=== PATIENT | female | born 2000 | race Caucasian/White ===

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

== ENCOUNTER 2022-04-04 23:30 | Emergency (ER) | payer OTHER, SELFPAY ==
[2022-04-04 23:59] VITALS: BP 113/75; PULSE 72; RESP 15; TEMP 36.8; O2SAT 98; BMI 20.7
== END 2022-04-05 00:26 | disposition left against medical advice (07) ==
PROVIDERS: Emergency Provider Emergency Medicine; PCP Internal Medicine
DX: U07.1 COVID-19 (principal)

== ENCOUNTER 2022-11-19 16:35 | Emergency (ER) | payer OTHER, SELFPAY ==
[2022-11-19 16:48] VITALS: BP 116/63; PULSE 92; RESP 18; TEMP 36.9; O2SAT 100; BMI 19.5
--- NOTE | 2022-11-19 16:49 | ED.DIZZY ---
HPI - Dizziness General Chief Complaint: General Medical Stated Complaint: dizziness,heart racing, ? anxiety Related Data Allergies Allergy/AdvReac Type Severity Reaction Status Date / Time nut - unspecified [NUTS] Allergy Severe SWELLING Verified 12/23/21 19:12 peanut [PEANUT] Allergy Severe FACIAL Verified 12/23/21 19:12 SWELLING, THROAT SWELLING tree nut [TREE NUT] Allergy Severe THROAT Verified 12/23/21 19:12 SWELLING, FACIAL SWELLING PMFSH Past Medical History Medical History (Updated 11/22/22 @ 08:59 by Carmen Gill NP) ADHD Depression High-functioning autism spectrum disorder Social History Social History Advance Directives: No Advance Directives Information Provided: No Physical Exam Vital Signs: Vital Signs: Last Vital Signs Temp 98.5 F 11/19/22 16:48 Pulse 92 11/19/22 16:48 Resp 18 11/19/22 16:48 BP 116/63 11/19/22 16:48 Pulse Ox 100 11/19/22 16:48 O2 Del Method 11/19/22 16:48 BMI result Body Mass Index 19.5 Course Course Course Narrative: THis is a rapid medical exam. deferred additional HPI, ROS, PE to primary provider. 22 yo female with history depression, anxiety, ADHD, autism here with complaints of dizziness, palpitations, falling over x several days, not sleeping. Per mom it is difficult to determine the patient is having a physical issue versus mental health. She is in a reliable historian. Therefore will check labs, EKG, viral testing, UA. Vital signs stable Medical Decision Making Lab Data Result Diagrams: 11/19/22 17:07 11/19/22 17:07 Labs: Lab Results 11/19/22 11/19/22 11/19/22 Range/Units 17:05 17:07 17:07 WBC 9.3 (4.8-10.8) X10*3/uL RBC 5.04 (4.20-5.50) X10*6/uL Hgb 14.7 (12.0-16.0) g/dl Hct 43.1 (37.0-47.0) % MCV 85.5 (80.0-98.0) fL MCH 29.2 (27.0-33.0) pg MCHC 34.1 (31.0-35.0) g/dl RDW 12.7 (11.0-16.0) % Plt Count 391 (160-400) X10*3/uL MPV 10.0 (9.4-12.3) fL Immature Gran % (Auto) 0.3 (0.0-0.4) % Neut % (Auto) 66.8 (45-73) % Lymph % (Auto) 20.9 (20-40) % [place] % (Auto) 7.8 (2-11) % Eos % (Auto) 3.3 (0-4) % Baso % (Auto) 0.9 (0-2) % Lymph # (Auto) 1.9 (1.2-4.9) X10*3/uL [place] # (Auto) 0.7 (0.1-1.2) X10*3/uL Eos # (Auto) 0.3 (0.0-0.4) X10*3/uL Baso # (Auto) 0.1 (0.0-0.2) X10*3/uL Abs Immat Gran (auto) 0.03 (0.00-0.03) X10*3/uL Absolute Neuts (auto) 6.2 (2.0-8.3) x10*3/uL Absolute Nucleated RBC 0.000 (0.0-0.012) X10*3/uL Nucleated RBC % (auto) 0.0 (0.0-0.2) /100WBC Sodium 140 (135-145) mmol/L Potassium 4.0 (3.3-5.1) mmol/L Chloride 106 (96-108) mmol/L Carbon Dioxide 26 (22-29) mmol/L Anion Gap 12 (12-20) BUN 11 (9-16) mg/dL Creatinine 0.74 (0.5-1.4) mg/dL Estim Creat Clear Calc 73.9 Estimated GFR > 60 Random Glucose 97 (60-115) mg/dL Calcium 9.6 (8.4-10.2) mg/dL Magnesium 1.9 (1.6-2.6) mg/dL Total Bilirubin 0.5 (0.0-1.0) mg/dL Direct Bilirubin 0.2 (0.0-0.5) mg/dL AST 17 (5-31) U/L ALT 10 (0-31) U/L Alkaline Phosphatase 69 (39-117) U/L Total Protein 7.0 (6.5-8.0) g/dL Albumin 4.6 (3.5-5.0) g/dL Influenza Type A (PCR) NEGATIVE (Negative) Influenza Type B (PCR) NEGATIVE (Negative) RSV RNA Qual (PCR) NEGATIVE (Negative) SARS-CoV-2 RNA (RT-PCR) NEGATIVE (Negative) Discharge Plan Discharge Clinical Impression: Dizziness Patient Disposition: Elopement Interventions: ED Discharge Assessment Last Done: 11/19/22 19:51 Discharge Date/Time: 11/19/22 19:52
--- NOTE | 2022-11-19 16:51 | ECG_ITS ---
Test Reason : weakness Blood Pressure : / mmHG Vent. Rate : 099 BPM Atrial Rate : 099 BPM P-R Int : 140 ms QRS Dur : 076 ms QT Int : 332 ms P-R-T Axes : 064 061 032 degrees QTc Int : 426 ms Normal sinus rhythm with sinus arrhythmia Normal ECG No previous ECGs available Referred By: Carmen Gill Electronically Signed By:ULYSSES CLEVELAND MD
--- OUTSIDE RECORDS SUMMARY | 2022-11-19 17:09 | XMS_ITS | Continuity of Care Document ---
:2000 Author Organization [facility] Address [address] [place] [id number]- Care Team Providers Name Role Phone Charbel Mendoza MD Primary Care Physician [place] [facility] [place]16[place] - 12/16/[address] [address]- Encounter Diagnosis Abdominal pain in female (Final) - 12/16/20 Abdominal pain in female (Final) - 12/16/20 Discharge Disposition: A-D/C Home Attending Physician: Chago Gimenez MD Admitting Physician: Chago Gimenez MD Referring Physician: Not on Staff, Referring MD Allergies, Adverse Reactions, Alerts Substance Reaction Severity Status Nuts Active Medications Bentyl 10 mg oral capsule 1 capsule = 10 mg, By Mouth, Daily in AM, # 30 capsule, 2 Refills, Maintenance, 01/15/14 15:48:19, 1capsule By Mouth Daily in AM Start Date: 01/15/14 Status: Orderedcyproheptadine 4 mg oral tablet See Instructions, 1 tablet By Mouth in the morning and 3 tablets at bedtime, # 120 tablet, 6 Refills, Maintenance, 07/04/15 17:08:07, 1 tablet By Mouth in the morning and 3 tablets at bedtime Start Date: 07/04/15 Status: OrderedEpiPen 2-Jason 0.3 mg injectable kit = 0.3 mg, Intramuscular, Once, may repeat if necessary, # 1 kit, 0 Refills, Soft Stop, 07/26/18 1:02:07 EDT Start Date: 07/26/18 Status: Orderedibuprofen 100 mg/5 mL oral suspension 15 mL = 300 mg, By Mouth, Every 6 hours, PRN for pain, with food or milk, # 240 mL, 0 Refills, Maintenance, 09/01/17 11:41:59, Suspension Start Date: 09/01/17 Status: OrderedLactulose 0 Refills, Maintenance Start Date: 10/12/12 Status: Orderedlactulose 10 gm/15 ml oral syrup 15 mL = 10 Gm, By Mouth, Daily, # 450 mL, 4 Refills, Maintenance, 09/26/15 17:05:11, 15 mL By Mouth Daily Start Date: 09/26/15 Status: Orderedmelatonin 3 mg oral tablet 1 tablet = 3 mg, By Mouth, Daily at bedtime, PRN for insomnia, # 60 tablet, 0 Refills, Maintenance, Tablet Start Date: 01/12/13 Status: OrderedMultivitamin By Mouth, Daily, 0 Refills, Maintenance Start Date: 10/12/12 Status: OrderedPen [place], 31 G x 5 mm BD Ultra Fine III See Instructions, # 100 each, Refills 11, Tot. Refills 11, Maintenance, use administer growth hormone, 11/28/14 13:26:27, Compound Start Date: 11/28/14 Status: Orderedsumatriptan 25 mg oral tablet 1 tablet = 25 mg, By Mouth, Once, PRN as needed for migraine headache, may repeat dose in 2 hours ifneeded, # 18 tablet, 2 Refills, Soft Stop, 07/04/15 17:08:10, 1 tablet By Mouth Once,PRN:as needed for migraine headache,Instr:may repeat dose in 2 ho... 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 Hx of prematurity(Confirmed) Active Migraine without Aura(Confirmed) Active Short Stature(Confirmed) Active Small for gestational age(Confirmed) Active Vital Signs Most recent to oldest 1 2 3 [Reference Range]: Oxygen Saturation [94-100 %] 100 % 100 % 96 % (12/16/20 11:48 PM) (12/16/20 8:49 PM) (12/16/20 6: 14 PM) Pulse Rate [55-90 bpm] 66 bpm 80 bpm 94 bpm (12/16/20 11:48 PM) (12/16/20 8:49 PM) *H* (12/16/20 6:41 PM ) Blood Pressure [71-110/30-71 115/64 mm Hg 108/62 mm Hg 120 /64 mm Hg mm Hg] *H* (12/16/20 8:49 PM) *H* (12/16/20 11:48 PM) (12/16/20 6:41 PM) Respiratory Rate [16-30 16 br/min 17 br/min 19 br/mi n br/min] (12/16/20 11:48 PM) (12/16/20 8:49 PM) (12/16/20 6: 41 PM) Temperature [96.8-100.4 DegF] 98 DegF 98.5 DegF 98 .9 DegF (12/16/20 11:48 PM) (12/16/20 8:49 PM) (12/16/20 6: 41 PM) Mode of Delivery (Oxygen) Room air Room air Room a ir (12/16/20 11:48 PM) (12/16/20 8:49 PM) (12/16/20 6: 41 PM) Blood pressure sites Arm, left Arm, left Arm, left (12/16/20 11:48 PM) (12/16/20 8:49 PM) (12/16/20 6: 41 PM) Temperature Route Oral Oral Oral (12/16/20 11:48 PM) (12/16/20 8:49 PM) (12/16/20 6: 41 PM) Social History Social History Type Response Smoking Status Never smoker; Tobacco user i n household: Yes; Other: mom outside; entered on: 10/01/15 Sex
--- OUTSIDE RECORDS SUMMARY | 2022-11-19 17:09 | XMS_ITS | Continuity of Care Document ---
:2000 Author Organization [facility] Address [address] [place] [id number]- Care Team Providers Name Role Phone Charbel Mendoza MD Primary Care Physician [place]counter [facility] [place] Date(s): 01/18/21 - 01/19/[address] [address]- Encounter Diagnosis Abdominal pain (Final) - 01/19/21 Discharge Disposition: A-D/C Home Attending Physician: Faith Hare MD Admitting Physician: Faith Hare MD Referring Physician: Not on Staff, Referring MD Allergies, Adverse Reactions, Alerts Substance Reaction Severity Status NKA Active Medications Bentyl 10 mg oral capsule 1 capsule = 10 mg, By Mouth, Daily in AM, # 30 capsule, 2 Refills, Maintenance, 01/15/14 15:48:19, 1capsule By Mouth Daily in AM Start Date: 01/15/14 Status: OrderedConcerta 36 mg oral tablet, extended release 1 tablet = 36 mg, By Mouth, Daily in AM, 0 Refills, Maintenance, 01/17/21 21:58:00 EST, ER Tablet, Partial fill upon patient request if the prescription is for a schedule II opioid drug. Start Date: 01/17/21 Status: Orderedcyproheptadine 4 mg oral tablet See Instructions, 1 tablet By Mouth in the morning and 3 tablets at bedtime, # 120 tablet, 6 Refills, Maintenance, 07/04/15 17:08:07, 1 tablet By Mouth in the morning and 3 tablets at bedtime Start Date: 07/04/15 Status: OrderedEpiPen 2-Jasno 0.3 mg injectable kit = 0.3 mg, Intramuscular, Once, may repeat if necessary, # 1 kit, 0 Refills, Soft Stop, 07/26/18 1:02:07 EDT Start Date: 07/26/18 Status: OrderedhydrOXYzine pamoate 25 mg oral capsule 1 capsule = 25 mg, By Mouth, 3 times a day, PRN for anxiety, # 40 capsule, 0 Refills, Maintenance, 01/17/21 21:59:00 EST, Capsule, Partial fill upon patient request if the prescription is for a schedule II opioid drug. Start Date: 01/17/21 Status: Orderedibuprofen 100 mg/5 mL oral suspension 15 mL = 300 mg, By Mouth, Every 6 hours, PRN for pain, with food or milk, # 240 mL, 0 Refills, Maintenance, 09/01/17 11:41:59, Suspension Start Date: 09/01/17 Status: OrderedKeflex monohydrate 500 mg oral capsule 1 capsule = 500 mg, By Mouth, Every 12 hours, for 7 days, # 14 capsule, 0 Refills, Acute 01/25/21 1:25:00 EST, 01/18/21 1:25:00 EST, Capsule, [facility]/pharmacy #[id number], Partial fill upon patient request if the prescription is for a schedule II opioid drug.,... Start Date: 01/18/21 Stop Date: 01/25/21 Status: OrderedKeflex monohydrate 500 mg oral capsule 1 capsule = 500 mg, By Mouth, Every 12 hours, for 7 days, # 14 capsule, 0 Refills, Acute 01/25/21 1:46:00 EST, 01/18/21 1:46:00 EST, Capsule, [facility]/pharmacy #[id number], Partial fill upon patient request if the prescription is for a schedule II opioid drug.,... Start Date: 01/18/21 Stop Date: 01/25/21 Status: OrderedLactulose 0 Refills, Maintenance Start Date: [...] Refills, Maintenance Start Date: 10/12/12 Status: OrderedPen [place], 31 G x 5 mm BD Ultra [...] to oldest 1 2 3 [Reference Range]: Height 142 cm 142 cm 142 cm (01/19/21 6:48 AM) (01/19/21 5:11 AM) (01/18/21 10: 52 PM) Weight 41.2 kg 41.2 kg 41.2 kg (01/19/21 6:48 AM) (01/19/21 5:11 AM) (01/18/21 10: 52 PM) Oxygen Saturation [94-100 %] 100 % 99 % 99 % (01/19/21 6:48 AM) (01/19/21 5:11 AM) (01/19/21 12: 44 AM) Pulse Rate [55-90 bpm] 60 bpm 75 bpm 58 bpm (01/19/21 6:48 AM) (01/19/21 5:11 AM) (01/19/21 12: 44 AM) Body Mass Index [18.5-24.99] 20.43 20.43 20. 43 (01/19/21 6:48 AM) (01/19/21 5:11 AM) (01/18/21 10: 52 PM) Blood Pressure [71-110/30-71 93/59 mm Hg 105/54 mm Hg 104 /60 mm Hg mm Hg] (01/19/21 6:48 AM) (01/19/21 5:11 AM) (01/19/21 12: 44 AM) Respiratory Rate [16-30 22 br/min 20 br/min 21 br/mi n br/min] (01/19/21 6:48 AM) (01/19/21 5:11 AM) (01/19/21 12: 44 AM) Temperature [96.8-100.4 DegF] 97.7 DegF 97.7 DegF 98 .3 DegF (01/19/21 6:48 AM) (01/19/21 5:11 AM) (01/19/21 12: 44 AM) Mode of Delivery (Oxygen) Room air Room air Room a ir (01/19/21 6:48 AM) (01/19/21 5:11 AM) (01/19/21 12: 44 AM) Blood pressure sites Arm, right Arm, right Arm, right (01/19/21 6:48 AM) (01/19/21 5:11 AM) (01/19/21 12: 44 AM) Temperature Route Oral Oral Oral (01/19/21 6:48 AM) (01/19/21 5:11 AM) (01/19/21 12: 44 AM) Dry Weight 41.2 kg 41.2 kg 41.2 kg (01/19/21 6:48 AM) (01/19/21 5:11 AM) (01/18/21 10: 52 PM) Weight Obtained Via Standing scale (01/18/21 10:52 PM) Dry Weight Obtained Via Standing scale (01/18/21 10:52 PM) Social History Social History Type Response Smoking Status Never smoker; Tobacco user i n household: Yes; Other: mom outside; entered on: 10/01/15 Sex
--- OUTSIDE RECORDS SUMMARY | 2022-11-19 17:09 | XMS_ITS | Continuity of Care Document ---
:2000 Author Organization [facility] Address [address] [place] [id number]- Care Team Providers Name Role Phone Charbel Mendoza MD Primary Care Physician Encounter [facility] [place](s[place] 07/09/21 - 07/09/[address] [address]- Discharge Disposition: A-D/C Home Attending Physician: Jeremias Petit MD Admitting Physician: Jeremias Petit MD Referring Physician: Not on Staff, Referring [...] Refills, Maintenance Start Date: 10/12/12 Status: OrderedPen [place], 31 G x 5 mm BD Ultra [...] Active Vital Signs Most recent to oldest [Reference Range]: 1 2 Height 145.5 cm 145.5 cm (07/09/21 10:39 AM) (07/09/21 10:15 AM) Weight 42.6 kg 42.6 kg (07/09/21 10:39 AM) (07/09/21 10:15 AM) Oxygen Saturation [94-100 %] 100 % (07/09/21 10:15 AM) Pulse Rate [55-90 bpm] 91 bpm *H* (07/09/21 10:15 AM) Body Mass Index [18.5-24.99] 20.12 (07/09/21 10:15 AM) Blood Pressure [71-110/30-71 mm Hg] 119/71 mm Hg *H* (07/09/21 10:15 AM) Respiratory Rate [16-30 br/min] 17 br/min (07/09/21 10:15 AM) Temperature [96.8-100.4 DegF] 98.8 DegF (07/09/21 10:15 AM) Mode of Delivery (Oxygen) Room air (07/09/21 10:15 AM) Blood pressure sites Arm, right (07/09/21 10:15 AM) Temperature Route Temporal (07/09/21 10:15 AM) Dry Weight 42.6 kg 42.6 kg (07/09/21 10:39 AM) (07/09/21 10:15 AM) Weight Obtained Via Standing scale (07/09/21 10:15 AM) Dry Weight Obtained Via Standing scale (07/09/21 10:15 AM) Social History Social History Type Response Smoking Status Never smoker; Tobacco user i n household: Yes; Other: mom outside; entered on: 10/01/15 Sex
[2022-11-19 17:17] LABS: MANUAL DIFF FLAG NO
[2022-11-19 17:18] LABS: Basophils Absolute Auto 0.1 X10*3/uL (0.0-0.2); Basophils Percent Auto 0.9 % (0-2); Eosinophils Absolute Auto 0.3 X10*3/uL (0.0-0.4); Eosinophils Percent Auto 3.3 % (0-4); Hematocrit 43.1 % (37.0-47.0); Hemoglobin 14.7 g/dl (12.0-16.0); Imm Gran Abs Auto 0.03 X10*3/uL (0.00-0.03); Imm Gran Pct Auto 0.3 % (0.0-0.4); Lymphocytes Absolute Auto 1.9 X10*3/uL (1.2-4.9); Lymphocytes Percent Auto 20.9 % (20-40); Mean Corpuscular HGB Conc 34.1 g/dl (31.0-35.0); Mean Corpuscular Hemoglobin 29.2 pg (27.0-33.0); Mean Corpuscular Volume 85.5 fL (80.0-98.0); Monocytes Absolute Auto 0.7 X10*3/uL (0.1-1.2); Monocytes Percent Auto 7.8 % (2-11); Neutrophils Absolute Auto 6.2 x10*3/uL (2.0-8.3); Neutrophils Percent Auto 66.8 % (45-73); Platelet Count 391 X10*3/uL (160-400); Red Blood Count 5.04 X10*6/uL (4.20-5.50); Red Cell Distribution Width 12.7 % (11.0-16.0); White Blood Count 9.3 X10*3/uL (4.8-10.8)
[2022-11-19 17:39] LABS: Alanine Aminotransferase 10 U/L (0-31); Albumin Level 4.6 g/dL (3.5-5.0); Alkaline Phosphatase 69 U/L (39-117); Anion Gap 12 (12-20); Aspartate Amino Transferase 17 U/L (5-31); Bilirubin Direct 0.2 mg/dL (0.0-0.5); Bilirubin Total 0.5 mg/dL (0.0-1.0); Blood Urea Nitrogen 11 mg/dL (9-16); Calcium 9.6 mg/dL (8.4-10.2); Carbon Dioxide 26 mmol/L (22-29); Chloride 106 mmol/L (96-108); Creatinine Clr Calc Pharmacy 73.9; Estimated Glomerular Filt Rate > 60; Glucose Random 97 mg/dL (60-115); Magnesium 1.9 mg/dL (1.6-2.6); Sodium 140 mmol/L (135-145)
[2022-11-19 18:00] LABS: Influenza A PCR NEGATIVE (Negative); Influenza B PCR NEGATIVE (Negative); Resp Syncy Virus RNA Qual PCR NEGATIVE (Negative); SARS COV2 PCR INHOUSE NEGATIVE (Negative)
== END 2022-11-19 19:52 | disposition left against medical advice (07) ==
PROVIDERS: Nurse Practitioner Family; Emergency Provider Emergency Medicine; PCP Pediatrics
DX: R42 Dizziness and giddiness (principal); F41.9 Anxiety disorder, unspecified; F84.0 Autistic disorder; F90.9 Attention-deficit hyperactivity disorder, unspecified type; F32.A Depression, unspecified; Z20.828 Contact with and (suspected) exposure to other viral communicable diseases
CPT/HCPCS: 0241U; 80048; 80076; 83735; 85025; 93005; 99283

== ENCOUNTER 2023-05-27 09:58 | Emergency (ER) | payer OTHER, SELFPAY ==
[2023-05-27 10:01] VITALS: BP 116/72; PULSE 87; O2SAT 96
[2023-05-27 10:08] VITALS: BP 115/74; PULSE 78; RESP 19; TEMP 36.6; O2SAT 98; BMI 19.5
[2023-05-27] MEDS: Acetaminophen 325 MG TABLET 650 MG PO (10:56)
--- NOTE | 2023-05-27 11:05 | PC.NURSE ---
assumed care of pt 1045 pt medicated per JAN for 7/10 right sided head pain. pt given water and crackers per request. speaking in full sentantces, acting appropriately, c- collar had been cleared when t/w entered exam room
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
== END 2023-05-27 12:03 | disposition home or self-care (01) ==
PROVIDERS: Emergency Provider Emergency Medicine Emergency Medical Services; PCP Pediatrics
DX: S16.1XXA Strain of muscle, fascia and tendon at neck level, initial encounter (principal); V43.62XA Car passenger injured in collision with other type car in traffic accident, initial encounter; R51.9 Headache, unspecified; Y93.89 Activity, other specified; Y92.414 Local residential or business street as the place of occurrence of the external cause; Y99.9 Unspecified external cause status
CPT/HCPCS: 99283

== ENCOUNTER 2023-06-22 19:26 | Emergency (ER) | payer OTHER, SELFPAY ==
[2023-06-22 19:45] VITALS: BP 107/64; PULSE 78; RESP 20; TEMP 37; O2SAT 98; BMI 22.2
--- NOTE | 2023-06-22 19:49 | ED_ITS ---
HPI - Psych General Chief Complaint: Anxiety Stated Complaint: Mental health Time Seen by Provider: 06/22/23 22:41 Source: patient, family, RN notes reviewed and old records reviewed Mode of arrival: ambulatory Limitations: no limitations History of Present Illness HPI Narrative: 22-year-old female presents for evaluation of anxiety. Patient has a long history of anxiety disorder. She was last hospitalized a few months ago She saw the care team and was set up with a therapist and psychiatrist. At that time a few months ago she was started on sertraline 25 mg daily She reports that she took it daily for a couple of days and was feeling better but ?then I lost bottle of medications. ? Patient reports that she has anxiety attacks almost daily and they have been worse today Her triggers are random but today was influenced by ?change to my daily activities. ? Patient denies any suicidal ideation but does admit to having suicidal ideation in the past Denies having had any suicidal ideation or plan to harm herself within the last week At the time my evaluation, the patient has been treated with Ativan and triage and reports feeling much better Related Data Home Medications Medication Instructions Recorded Confirmed sertraline 25 mg tablet 25 mg PO DAILY 06/22/23 06/22/23 Previous Rx's Medication Instructions Recorded sertraline 25 mg tablet 25 mg PO DAILY #14 tabs 06/22/23 Allergies Allergy/AdvReac Type Severity Reaction Status Date / Time nut - unspecified [NUTS] Allergy Severe SWELLING Verified 12/23/21 19:12 peanut [PEANUT] Allergy Severe FACIAL Verified 12/23/21 19:12 SWELLING, THROAT SWELLING tree nut [TREE NUT] Allergy Severe THROAT Verified 12/23/21 19:12 SWELLING, FACIAL SWELLING Review of Systems Constitutional: Constitutional: Denies body ache(s), Denies chills and Denies fever(s) Cardiovascular: Cardiovascular: Denies chest pain and Denies dyspnea Respiratory: Respiratory: Denies cough and Denies dyspnea Gastrointestinal: Gastrointestinal: Denies abdominal pain, Denies nausea and Denies vomiting Musculoskeletal: Musculoskeletal: Denies arthralgias, Denies joint swelling and Denies limited range of motion Integumentary/Breasts: Skin/Breast: Denies rash Psychiatric: Psychiatric: Reports anxiety, Reports panic attacks, Denies homicidal ideation and Denies suicidal ideation [facility] Past Medical History Medical History (Updated 06/22/23 @ 23:11 by Librado Curry) ADHD Depression High-functioning autism spectrum disorder Social History Social History Advance Directives: No Advance Directives Information Provided: No Physical Exam Vital Signs: Vital Signs: Last Vital Signs Temp 98.6 F 06/22/23 19:45 Pulse 78 06/22/23 19:45 Resp 20 06/22/23 19:45 BP 107/64 06/22/23 19:45 Pulse Ox 98 06/22/23 19:45 O2 Del Method Room Air 06/22/23 19:45 BMI result Body Mass Index 22.2 Const: General: healthy appearing, comfortable, no acute distress, alert and awake Nutritional Appearance: well nourished Orientation/consciousness: patient oriented x3 HEENT: Head: Yes normocephalic and Yes atraumatic Throat: Yes posterior oropharynx normal Eyes: Eyelids: Yes eyelids normal Conjunctivae: conjunctivae normal Sclerae: sclerae normal Corneas: corneas normal Pupils: Equal, round and reactive pupils present EOM: EOMs intact bilaterally Neck: Neck: Yes full ROM Resp: Effort & Inspection: normal respiratory effort, able to speak in complete sentences, no audible wheezes and not labored Auscultation: clear to auscultation bilaterally Cardio: Rate: regular rate Rhythm: regular rhythm GI: Inspection: No distended Palpation (GI): Soft to palpation, not firm, nontender, no guarding and not rigid Auscultation: normoactive bowel sounds Skin: General skin exam: no rashes or lesions noted and elasticity normal Neuro: General: patient oriented x3 Cranial nerves: Yes Equal, round and reactive pupils present and Yes Bilaterally intact EOM present Cognition (Neuro): normal cognition Course Course Course Narrative: RME - 22 yo female with history of anxiety, depression, ADHD who presents to the ER for evaluation of worsening anxiety for the last 1 week. No relief with hydroxyzine at home. No drugs or ETOH. No SI or HI. Has not seen med prescriber in 2 months. Has a therapist that she has not connected with recently. Plan: CARE team evaluation, not in current crisis that would require inpatient level of care - will hold off of lab workup for now. Medications Administered Discontinued Medications Generic Name Dose Route Start Last Admin Trade Name Freq PRN Reason Stop Dose Admin Lorazepam 1 mg 06/22/23 19:52 06/22/23 20:51 Lorazepam 1 Mg Tablet PO 06/22/23 19:53 1 mg ONCE ONE Administration Medical Decision Making Medical Decision Making MDM Narrative: I had a lengthy discussion with the patient and both of her parents who are bedside. I discussed her anxiety and some coping mechanisms. I asked several times if the patient had any thoughts of harming herself or anybody else and she adamantly refused any suicidal ideation within the last week. The patient is now calmer and cooperative. I asked the patient and the family if they would like to speak to the care team. After some consideration, the ultimately dec lined at this time. I agreed to prescribe the patient 2 weeks worth of the sertraline that she had previously been prescribed but she would need to call her psychiatrist 1st thing in the morning to get back on her outpatient medications. The patient and both her parents all verbally reports that they are comfortable with discharge at this time. Differential Diagnosis Differential Diagnoses: The differential diagnosis associated with the presentation includes Anxiety Panic disorder Depression Bipolar disorder Lab Data 06/22/23 22:49 06/22/23 22:49 Labs: Lab Results 06/22/23 06/22/23 06/22/23 Range/Units 22:49 22:49 22:49 WBC 12.7 H (4.8-10.8) X10*3/uL RBC 4.88 (4.20-5.50) X10*6/uL Hgb 14.6 (12.0-16.0) g/dl Hct 42.2 (37.0-47.0) % MCV 86.5 (80.0-98.0) fL MCH 29.9 (27.0-33.0) pg MCHC 34.6 (31.0-35.0) g/dl RDW 12.4 (11.0-16.0) % Plt Count 406 H (160-400) X10*3/uL MPV 9.3 L (9.4-12.3) fL Immature Gran % (Auto) 0.6 H (0.0-0.4) % Neut % (Auto) 65.7 (45-73) % Lymph % (Auto) 22.5 (20-40) % [place] % (Auto) 8.1 (2-11) % Eos % (Auto) 2.5 (0-4) % Baso % (Auto) 0.6 (0-2) % Lymph # (Auto) 2.9 (1.2-4.9) X10*3/uL [place] # (Auto) 1.0 (0.1-1.2) X10*3/uL Eos # (Auto) 0.3 (0.0-0.4) X10*3/uL Baso # (Auto) 0.1 (0.0-0.2) X10*3/uL Abs Immat Gran (auto) 0.08 H (0.00-0.03) X10*3/uL Absolute Neuts (auto) 8.3 (2.0-8.3) x10*3/uL Absolute Nucleated RBC 0.000 (0.0-0.012) X10*3/uL Nucleated RBC % (auto) 0.0 (0.0-0.2) /100WBC Sodium 141 (135-145) mmol/L Potassium 4.0 (3.3-5.1) mmol/L Chloride 106 (96-108) mmol/L Carbon Dioxide 22 (22-29) mmol/L Anion Gap 17 (12-20) BUN 16 (9-16) mg/dL Creatinine 0.74 (0.5-1.4) mg/dL Estim Creat Clear Calc 76.9 Estimated GFR > 60 Random Glucose 95 (60-115) mg/dL Calcium 9.7 (8.4-10.2) mg/dL Total Bilirubin 0.2 (0.0-1.0) mg/dL AST 16 (5-31) U/L ALT 26 (0-31) U/L Alkaline Phosphatase 83 (39-117) U/L Total Protein 6.9 (6.5-8.0) g/dL Albumin 4.2 (3.5-5.0) g/dL Salicylates < 5.0 L (15-30) mg/dL Acetaminophen < 17 (<30) mcg/mL Ethyl Alcohol < 10 mg/dL Discharge Plan Discharge Clinical Impression: Acute anxiety Patient Disposition: Home, Self-Care Instructions: Anxiety (ED) Additional Instructions: Take your sertraline as prescribed Make sure you call tomorrow morning your psychiatrist to get a scheduled appointment Return for any new or worsening symptoms Call 911 or return to emergency department immediately if you have any thoughts of harming herself or anybody else Prescriptions: New sertraline 25 mg tablet 25 mg PO DAILY Qty: 14 0RF No Action sertraline 25 mg tablet 25 mg PO DAILY Interventions: ED Discharge Assessment Last Done: 06/22/23 23:44
[2023-06-22] MEDS: LORazepam 1 MG TABLET PO (20:51)
--- NOTE | 2023-06-22 20:53 | PC.NURSE ---
Patient has a hx of cutting
[2023-06-22 22:56] LABS: MANUAL DIFF FLAG NO
[2023-06-22 23:00] LABS: Basophils Absolute Auto 0.1 X10*3/uL (0.0-0.2); Basophils Percent Auto 0.6 % (0-2); Eosinophils Absolute Auto 0.3 X10*3/uL (0.0-0.4); Eosinophils Percent Auto 2.5 % (0-4); Hematocrit 42.2 % (37.0-47.0); Hemoglobin 14.6 g/dl (12.0-16.0); Imm Gran Abs Auto 0.08 X10*3/uL (0.00-0.03); Imm Gran Pct Auto 0.6 % (0.0-0.4); Lymphocytes Absolute Auto 2.9 X10*3/uL (1.2-4.9); Lymphocytes Percent Auto 22.5 % (20-40); Mean Corpuscular HGB Conc 34.6 g/dl (31.0-35.0); Mean Corpuscular Hemoglobin 29.9 pg (27.0-33.0); Mean Corpuscular Volume 86.5 fL (80.0-98.0); Mean Platelet Volume 9.3 fL (9.4-12.3); Monocytes Percent Auto 8.1 % (2-11); Neutrophils Absolute Auto 8.3 x10*3/uL (2.0-8.3); Neutrophils Percent Auto 65.7 % (45-73); Platelet Count 406 X10*3/uL (160-400); Red Blood Count 4.88 X10*6/uL (4.20-5.50); Red Cell Distribution Width 12.4 % (11.0-16.0); White Blood Count 12.7 X10*3/uL (4.8-10.8)
--- NOTE | 2023-06-22 23:11 | PC.NURSE ---
TARAS at bedside for eval. Per TARAS, plan for DC home. Per TARAS, pt is not SI, pt misinterpreted questions earlier. Pt provided with CHD packet.
[2023-06-22 23:13] LABS: Alanine Aminotransferase 26 U/L (0-31); Albumin Level 4.2 g/dL (3.5-5.0); Alkaline Phosphatase 83 U/L (39-117); Anion Gap 17 (12-20); Aspartate Amino Transferase 16 U/L (5-31); Bilirubin Total 0.2 mg/dL (0.0-1.0); Blood Urea Nitrogen 16 mg/dL (9-16); Calcium 9.7 mg/dL (8.4-10.2); Carbon Dioxide 22 mmol/L (22-29); Chloride 106 mmol/L (96-108); Creatinine Clr Calc Pharmacy 76.9; Estimated Glomerular Filt Rate > 60; Ethanol < 10 mg/dL; Glucose Random 95 mg/dL (60-115); Sodium 141 mmol/L (135-145); Total Protein 6.9 g/dL (6.5-8.0)
[2023-06-22 23:16] LABS: Acetaminophen LAB < 17 mcg/mL (<30); Salicylate < 5.0 mg/dL (15-30)
== END 2023-06-22 23:44 | disposition home or self-care (01) ==
PROVIDERS: Emergency Provider Internal Medicine; PCP Pediatrics
DX: F41.9 Anxiety disorder, unspecified (principal); Z79.899 Other long term (current) drug therapy
CPT/HCPCS: 36415; 80053; 80143; 80179; 80307; 85025; 99283; 99284

== ENCOUNTER 2023-08-02 01:14 | Emergency (ER) | payer OTHER, SELFPAY ==
[2023-08-02 01:18] VITALS: BP 122/81; PULSE 81; RESP 18; TEMP 36.8; O2SAT 99; BMI 21.2
[2023-08-02 03:30] VITALS: BP 112/70; PULSE 72; RESP 16; TEMP 36.7; O2SAT 98
[2023-08-02] MEDS: LORazepam 1 MG TABLET PO (04:53)
--- NOTE | 2023-08-02 05:11 | ED.ANXIETY ---
HPI - Anxiety General Chief Complaint: Anxiety Stated Complaint: mental health eval Time Seen by Provider: 08/02/23 03:56 Source: patient Mode of arrival: ambulatory Limitations: no limitations History of Present Illness HPI narrative: Patient with history of anxiety takes Atarax, this time is not working for last few days unable to sleep denies any significant depression or SI Related Data Home Medications Medication Instructions Recorded Confirmed sertraline 25 mg tablet 25 mg PO DAILY 06/22/23 06/22/23 Previous Rx's Medication Instructions Recorded sertraline 25 mg tablet 25 mg PO DAILY #14 tabs 06/22/23 lorazepam 0.5 mg tablet (Ativan) 0.5 mg PO BEDTIME PRN 08/02/23 anxiety/sleep #10 tabs Allergies Allergy/AdvReac Type Severity Reaction Status Date / Time nut - unspecified [NUTS] Allergy Severe SWELLING Verified 12/23/21 19:12 peanut [PEANUT] Allergy Severe FACIAL Verified 12/23/21 19:12 SWELLING, THROAT SWELLING tree nut [TREE NUT] Allergy Severe THROAT Verified 12/23/21 19:12 SWELLING, FACIAL SWELLING Review of Systems Review of Systems: Yes all other systems are reviewed and are negative [facility] Past Medical History Medical History High-functioning autism spectrum disorder Depression ADHD Social History Social History Advance Directives: No Advance Directives Information Provided: Yes Physical Exam Vital Signs: Vital Signs: Last Vital Signs Temp 98.1 F 08/02/23 03:30 Pulse 72 08/02/23 03:30 Resp 16 08/02/23 03:30 BP 112/70 08/02/23 03:30 Pulse Ox 98 08/02/23 03:30 O2 Del Method Room Air 08/02/23 03:30 BMI result Body Mass Index 21.2 Appearance: Alert. Oriented X3. No acute distress. Anxious Neck: Normal inspection. Neck supple. CVS: Normal heart rate and rhythm. Pulses normal. Respiratory: No respiratory distress. Equal air entry bilateral, no wheezing/rales/rhonchi Abdomen: Soft and nontender. Bowel sounds are present, no mass palpable, Skin: Skin warm and dry. Normal skin color. Normal skin turgor. Extremities: No lower extremity edema. No calf tenderness Neuro: Oriented X 3. Medications Administered Discontinued Medications Generic Name Dose Route Start Last Admin Trade Name Freq PRN Reason Stop Dose Admin Lorazepam 1 mg 08/02/23 04:04 08/02/23 04:53 Lorazepam 1 Mg Tablet PO 08/02/23 04:05 1 mg ONCE ONE Administration Medical Decision Making Medical Decision Making [facility] Narrative: Patient anxiety responded to Ativan discharge patient home use Ativan as needed for severe anxiety Discharge Plan Discharge Clinical Impression: Acute anxiety, Panic disorder Patient Disposition: Home, Self-Care Instructions: Panic Attack (ED) Additional Instructions: Continue your medications take Ativan for severe anxiety/panic attack and follow with your psychiatrist Prescriptions: New lorazepam [Ativan] 0.5 mg tablet 0.5 mg PO BEDTIME PRN (Reason: anxiety/sleep) Qty: 10 0RF No Action sertraline 25 mg tablet 25 mg PO DAILY sertraline 25 mg tablet 25 mg PO DAILY Qty: 14 0RF Interventions: ED Discharge Assessment Last Done: 08/02/23 05:55 Discharge Date/Time: 08/02/23 05:47
== END 2023-08-02 05:47 | disposition home or self-care (01) ==
PROVIDERS: Emergency Provider Internal Medicine
DX: F41.1 Generalized anxiety disorder (principal); F43.0 Acute stress reaction; F41.0 Panic disorder [episodic paroxysmal anxiety]
CPT/HCPCS: 99283

== ENCOUNTER 2023-08-03 18:02 | Inpatient (IN) | payer OTHER, SELFPAY ==
--- NOTE | 2023-08-03 18:25 | ED.GENADULT ---
HPI - General Adult General Chief complaint: Psychiatric Symptoms Stated complaint: Anxiety/ crisis Time Seen by Provider: 08/03/23 18:46 Source: patient Mode of arrival: ambulatory Limitations: no limitations History of Present Illness HPI narrative: 22-year-old female presents to the ED for anxiety exacerbation due to intrusive thoughts and having suicidal ideation but has no plan. Patient denies any fever or chills. Denies any drug use or alcohol abuse. Related Data Home Medications Medication Instructions Recorded Confirmed lorazepam 0.5 mg tablet 0.5 mg PO DAILY PRN Anxiety 08/03/23 08/03/23 sertraline 25 mg tablet 25 mg PO DAILY 08/03/23 08/03/23 Allergies Allergy/AdvReac Type Severity Reaction Status Date / Time nut - unspecified [NUTS] Allergy Severe SWELLING Verified 12/23/21 19:12 peanut [PEANUT] Allergy Severe FACIAL Verified 12/23/21 19:12 SWELLING, THROAT SWELLING tree nut [TREE NUT] Allergy Severe THROAT Verified 12/23/21 19:12 SWELLING, FACIAL SWELLING Review of Systems Review of Systems: Anxiety, suicidal ideation Yes all other systems are reviewed and are negative [facility] Past Medical History Medical History High-functioning autism spectrum disorder Depression ADHD Social History Social History Advance Directives: No Advance Directives Information Provided: No Healthcare Proxy: No Guardian: No Physical Exam ED Vital Signs: Vital Signs - 24 hr 08/03/23 18:26 Temperature 98.5 F Pulse Rate 85 Respiratory Rate 18 Blood Pressure 111/66 Pulse Oximetry 100 Oxygen Delivery Method Room Air BMI result Body Mass Index 21.0 Const General: cooperative, healthy appearing, comfortable, no acute distress, well developed, alert, awake and Physically active Orientation/consciousness: oriented to person, oriented to place, oriented to time and patient oriented x3 HENMT Head: Yes normal to inspection, Yes No palpable skull fracture present, Yes normocephalic, Yes atraumatic and No abrasion Eyes General: appearance normal, both eyes and all related structures Neck Neck: Yes normal visual inspection, Yes full ROM, Yes no lymphadenopathy, Yes no meningeal signs, Yes trachea midline, Yes supple, No anterior neck swelling and No tender Chest Chest palpation & inspection: normal inspection of the chest and normal palpation of entire chest wall Resp Effort & Inspection: normal respiratory effort and able to speak in complete sentences Auscultation: clear to auscultation bilaterally Cardio Jugular venous distension: no JVD Heart sounds: S1 normal heart sound present and S2 normal heart sound present GI Inspection: Yes normal to inspection and No abdominal wall ecchymosis Palpation (GI): Soft to palpation, not firm, nontender, no guarding and not rigid General: No CVA tenderness and Yes no CVA tenderness Back/Spine/Pelvis Back: no CVA tenderness, No CVA tenderness and No back tenderness Skin General skin exam: no rashes or lesions noted, elasticity normal and turgor normal Neuro General: oriented to person, oriented to place, oriented to time, patient oriented x3, gait normal, tone normal, moves all extremities, Normal light touch and pain sensation, no meningeal signs, no focal motor deficits, CN's II-XI intact bilaterally and normal sensation to monofilament Extrem General: Yes normal to inspection and Yes full ROM Psych Appearance: grossly normal, well kempt and not disheveled Course Course Course Narrative: RME: 22-year-old female with past medical history of anxiety presenting to the ED complaining of increasing anxiety/panic & intrusive thoughts w/+SI x5-6 weeks. Patient states I could jump off a roof or something, but that's not my plan Spoke with therapist today on phone who's suspicious patient is Bipolar however cannot be started on any meds x months and recommended she come to the ED Labs, Tox screen, UA, CARE team consult ordered Full HPI, ROS and PE to be performed by primary ED provider. Reevaluation(s) Reevaluation #1: Physician observation started at 0339. Patient placed in physician observation because the patient needed more time for CARE team to assess the need for psych admission. VS stable, no acute events overnight. Physician observation continued. VS stable, no acute events overnight S12 bed search at this time workup other than slight bump in WBC count, UTI seems contaminated. 440am. Medications Administered Discontinued Medications Generic Name Dose Route Start Last Admin Trade Name Freq PRN Reason Stop Dose Admin Melatonin 9 mg 08/03/23 20:54 08/03/23 21:15 Melatonin 3 Mg Tablet PO 08/03/23 20:55 9 mg ONCE ONE Administration Medical Decision Making Medical Decision Making MDM Narrative: 22-year-old female presents to ED for anxiety and suicidal ideation without any plan. Labs ordered patient would like to be evaluated by care team. Patient not homicidal. Patient presently denies any physical complaints. 2:54am: Patient seen by care team consulted Frank who states patient will be a bed search for psych admission. Differential Diagnosis Differential Diagnoses: The differential diagnosis associated with the presentation includes (depression, Suicidal, homicidal, psychosis, bipolar) Admission/Observation Consideration of admission/observation: Escalation of care including admission/observation considered Lab Data [facility] Lab Attestation statement: I reviewed the patient's lab results. 08/03/23 18:54 08/03/23 18:54 Labs: Lab Results 08/03/23 08/03/23 Range/Units 18:54 21:36 WBC 15.6 H (4.8-10.8) X10*3/uL RBC 5.07 (4.20-5.50) X10*6/uL Hgb 14.9 (12.0-16.0) g/dl Hct 42.3 (37.0-47.0) % MCV 83.4 (80.0-98.0) fL MCH 29.4 (27.0-33.0) pg MCHC 35.2 H (31.0-35.0) g/dl RDW 12.3 (11.0-16.0) % Plt Count 391 (160-400) X10*3/uL MPV 9.6 (9.4-12.3) fL Immature Gran % (Auto) 0.5 H (0.0-0.4) % Neut % (Auto) 85.7 H (45-73) % Lymph % (Auto) 7.3 L (20-40) % [place] % (Auto) 5.3 (2-11) % Eos % (Auto) 0.8 (0-4) % Baso % (Auto) 0.4 (0-2) % Lymph # (Auto) 1.1 L (1.2-4.9) X10*3/uL [place] # (Auto) 0.8 (0.1-1.2) X10*3/uL Eos # (Auto) 0.1 (0.0-0.4) X10*3/uL Baso # (Auto) 0.1 (0.0-0.2) X10*3/uL Abs Immat Gran (auto) 0.08 H (0.00-0.03) X10*3/uL Absolute Neuts (auto) 13.4 H (2.0-8.3) x10*3/uL Absolute Nucleated RBC 0.000 (0.0-0.012) X10*3/uL Nucleated RBC % (auto) 0.0 (0.0-0.2) /100WBC Sodium 141 (135-145) mmol/L Potassium 3.9 (3.3-5.1) mmol/L Chloride 107 (96-108) mmol/L Carbon Dioxide 24 (22-29) mmol/L Anion Gap 14 (12-20) BUN 11 (9-16) mg/dL Creatinine 0.68 (0.5-1.4) mg/dL Estim Creat Clear Calc 80.4 Estimated GFR > 60 Random Glucose 97 (60-115) mg/dL Calcium 9.4 (8.4-10.2) mg/dL Total Bilirubin 0.3 (0.0-1.0) mg/dL AST 15 (5-31) U/L ALT 12 (0-31) U/L Alkaline Phosphatase 77 (39-117) U/L Total Protein 7.3 (6.5-8.0) g/dL Albumin 4.5 (3.5-5.0) g/dL Urine Color Yellow Urine Appearance Clear Urine pH 6.5 (5.0-9.0) Ur Specific [place] 1.020 (1.005-1.025) Urine Protein Negative (Neg-Trace) mg/dL Urine Glucose (UA) Negative (Negative) mg/dL Urine Ketones Negative (Negative) mg/dL Urine Blood Negative (Negative) Urine Nitrite Negative (Negative) Ur Leukocyte Esterase Small (1+) H (Negative) Urine RBC 0-2 (0-2) /HPF Urine WBC 11-20 H (0-5) /HPF Ur Squamous Epith Cells 11-20 (0-2) /HPF Urine Bacteria 1+ (None Seen) Hyaline Casts 0-2 (0-2) /LPF Urine Test NEGATIVE (NEGATIVE) Salicylates < 5.0 L (15-30) mg/dL Urine Opiates Screen Not Detected (Not Detect) Urine Fentanyl Screen Not Detected (Not Detect) Acetaminophen < 17 (<30) mcg/mL Ur Barbiturates Screen Not Detected (Not Detect) Ur Phencyclidine Scrn Not Detected (Not Detect) Ur Amphetamines Screen Not Detected (Not Detect) U Benzodiazepines Scrn Not Detected (Not Detect) Urine Cocaine Screen Not Detected (Not Detect) U Marijuana (THC) Screen Not Detected (Not Detect) Ethyl Alcohol < 10 mg/dL COVID-19 ([facility]ANGEL) Negative (Negative) COVID-19 Clin Com See Note Independent Historian Clinical information obtained from an independent historian. History obtained from or confirmed by: EMS External Record Review External record reviewed: Other (Prior ED visit) Discharge Plan Discharge Clinical Impression: Bipolar disorder Patient Disposition: Admitted As Inpatient Interventions: Admission Worksheet (ED) Last Done: 08/04/23 15:09 Discharge Date/Time: 08/04/23 15:09
[2023-08-03 18:26] VITALS: BP 111/66; PULSE 85; RESP 18; TEMP 36.9; O2SAT 100; BMI 21.0
[2023-08-03 19:05] LABS: MANUAL DIFF FLAG NO
[2023-08-03 19:07] LABS: Basophils Absolute Auto 0.1 X10*3/uL (0.0-0.2); Basophils Percent Auto 0.4 % (0-2); Eosinophils Absolute Auto 0.1 X10*3/uL (0.0-0.4); Eosinophils Percent Auto 0.8 % (0-4); Hematocrit 42.3 % (37.0-47.0); Hemoglobin 14.9 g/dl (12.0-16.0); Imm Gran Abs Auto 0.08 X10*3/uL (0.00-0.03); Imm Gran Pct Auto 0.5 % (0.0-0.4); Lymphocytes Absolute Auto 1.1 X10*3/uL (1.2-4.9); Lymphocytes Percent Auto 7.3 % (20-40); Mean Corpuscular HGB Conc 35.2 g/dl (31.0-35.0); Mean Corpuscular Hemoglobin 29.4 pg (27.0-33.0); Mean Corpuscular Volume 83.4 fL (80.0-98.0); Mean Platelet Volume 9.6 fL (9.4-12.3); Monocytes Absolute Auto 0.8 X10*3/uL (0.1-1.2); Monocytes Percent Auto 5.3 % (2-11); Neutrophils Absolute Auto 13.4 x10*3/uL (2.0-8.3); Neutrophils Percent Auto 85.7 % (45-73); Platelet Count 391 X10*3/uL (160-400); Red Blood Count 5.07 X10*6/uL (4.20-5.50); Red Cell Distribution Width 12.3 % (11.0-16.0); White Blood Count 15.6 X10*3/uL (4.8-10.8)
[2023-08-03 19:22] LABS: COVID-19 Test Negative (Negative); IDNOW Serial# BCCEAD1C
[2023-08-03 19:33] LABS: Acetaminophen LAB < 17 mcg/mL (<30); Alanine Aminotransferase 12 U/L (0-31); Albumin Level 4.5 g/dL (3.5-5.0); Alkaline Phosphatase 77 U/L (39-117); Anion Gap 14 (12-20); Aspartate Amino Transferase 15 U/L (5-31); Bilirubin Total 0.3 mg/dL (0.0-1.0); Blood Urea Nitrogen 11 mg/dL (9-16); Calcium 9.4 mg/dL (8.4-10.2); Carbon Dioxide 24 mmol/L (22-29); Chloride 107 mmol/L (96-108); Creatinine Clr Calc Pharmacy 80.4; Estimated Glomerular Filt Rate > 60; Ethanol < 10 mg/dL; Glucose Random 97 mg/dL (60-115); Potassium 3.9 mmol/L (3.3-5.1); Salicylate < 5.0 mg/dL (15-30); Sodium 141 mmol/L (135-145); Total Protein 7.3 g/dL (6.5-8.0)
[2023-08-03] MEDS: Melatonin 3 MG TABLET 9 MG PO (21:15)
[2023-08-03 21:50] LABS: Appearance Urine Clear; Color Urine Yellow; Glucose Urine UA Negative (Negative); Leukocyte Esterase Urine Small (1+) (Negative); Nitrite Urine Negative (Negative); PH 6.5 (5.0-9.0); UMIC TRIGGER UA YES; Urine Blood Negative (Negative); Urine Ketones Negative (Negative); Urine Protein Negative (Neg-Trace)
[2023-08-03 21:51] LABS: UPreg QC Valid YES; Urine Pregnancy NEGATIVE (NEGATIVE)
[2023-08-03 21:58] LABS: Amphetamine Screen Urine Not Detected (Not Detect); Barbiturates, Urine Not Detected (Not Detect); Benzodiazepines Screen Urine Not Detected (Not Detect); Cannabinoid Screen Urine Not Detected (Not Detect); Cocaine Screen Urine Not Detected (Not Detect); Fentanyl, urine Not Detected (Not Detect); Opiate Screen Urine Not Detected (Not Detect); Phencyclidine Screen Urine Not Detected (Not Detect)
[2023-08-03 22:22] LABS: Bacteria Urine 1+ (None Seen); Hyaline Casts Urine 0-2 /LPF (0-2); RBC Urine 0-2 /HPF (0-2)
--- NOTE | 2023-08-04 06:08 | PC.NURSE ---
Patient slept through the night, no distress observed/reported, med rec completed/pending provider's approval, Melatonin 9 mg administered with + effect, patient was assessed by care team, labs completed/resulted, patient is on 15 minutes for safety check, disposition per care team is section 12 inpatient bed search, behavior non concerning, VSS, will continue to monitor
[2023-08-04 16:00] VITALS: BP 112/66; PULSE 79; RESP 20; TEMP 36.6; O2SAT 96
[2023-08-04 16:47] VITALS: BMI 21.2
--- NOTE | 2023-08-04 16:49 | PC.ADMIT ---
Nursing admission note: 22 year old female DX: Unspecified Bipolar disorder, Panic disorder. Referred for treatment by CARE team. Patient presented to [facility] ER due to increased anxiety, panic attacks, suicidal ideation and intrusive thoughts. Patient reports her therapist directed her to come to ER as she may be experiencing a manic episode. Patient easily engaged. Reports feeling very anxious scared , affect congruent. States she has not been hospitalized for psychiatric problems previously. Presents with intermittent eye contact, stating it is uncomfortable for her. Reports intermittent SI, chronic, on and off for years . Reports history of cutting in middle school, states she has found other ways of coping, has not cut for years. Reports intrusive thoughts, random, to hurt others . Denies at this time. Reports her thoughts tell her to kill herself, not voices, it's not outside of my head, I tell my mind it is being a douche . Thoughts clear, linear and organized. Denies racing thought at this time. No overt psychosis or expressed delusions. Reports she gets angry when nothing is going on , high emotions that drop down . Reports mother is [employer] and brother is Autistic. Denies appetite disturbances, states she eats when I am starving . Finds it hard to fall asleep. Good attn to ADL. Skin check completed with RN ROSY. Reports massive sensory issues , fabrics irritate me, showers are irritating on my skin . Patient denies acute medical issues. Allergy to Peanut, tree nut. Patient non smoker, TOX screen negative. COVID negative. UCG negative. Reports she has received flu shot for this season. Patient oriented to unit, placed on unit safety checks. See nursing assessment, crisis evaluation for complete details.
[2023-08-04 19:45] VITALS: BP 105/63; PULSE 86; RESP 18; TEMP 36.8; O2SAT 100
[2023-08-04] MEDS: LORazepam 0.5 MG TABLET PO (22:06)
[2023-08-04] MEDS: traZODone HCL 50 MG TABLET PO (22:06)
[2023-08-05 07:00] VITALS: BMI 21.5
[2023-08-05 09:00] VITALS: BP 96/54; PULSE 70; RESP 18; TEMP 36.6; O2SAT 95
[2023-08-05 09:01] LABS: Estimated Average Glucose 97 mg/dL
[2023-08-05 10:03] LABS: Cholesterol 165 mg/dL (<200); HDL Cholesterol 54 mg/dL (>40); LDL Cholesterol Calculated 97 mg/dL (<100); Triglycerides 70 mg/dL (<150)
[2023-08-05 10:07] LABS: Free T4 (Free Thyroxine) 0.82 ng/dL (0.71-1.85); Thyroid Stimulating Hormone 6.18 uIU/mL (0.32-4.0)
[2023-08-05 10:26] LABS: Folate 5.9 ng/mL (> or = 4.0); Vitamin B12 370 pg/mL (200-900)
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
[2023-08-05] MEDS: carBAMazepine ER 100 MG TAB.ER.12H PO ×2 (12:35→22:06)
[2023-08-05 21:35] VITALS: BP 114/56; PULSE 75; RESP 18; TEMP 36.5; O2SAT 94
[2023-08-05] MEDS: LORazepam 0.5 MG TABLET PO (22:06)
[2023-08-05] MEDS: traZODone HCL 50 MG TABLET PO (22:06)
[2023-08-06 08:40] VITALS: BP 119/55; PULSE 63; RESP 18; TEMP 36.6; O2SAT 98
--- NOTE | 2023-08-06 12:11 | P.PNPSI_ITS ---
Subjective Subjective Date of Service: 08/06/23 Reason For Visit: SI Subjective Notes: Conditional Voluntary Interim History: Pt reports feeling great after one dose of carbamazepine. nursing staff was concern about possible allergic rx as pt reported hr after taking medication that she had itchy throat. No s/s of anaphylactic rx including compromise airway facil swelling or throat closing. It resolved on its pwn without antihistamine. She does report peer at home had strep throat- ordered strep throat test which was negative. Pt asking to leave soon as she feels better. Encouraged to stay to coordinate aftercare and still make sure she does not have rx to carbamazepine. She received dose today without any s/s of allergic rx. Review of Systems Review of Systems Anxiety, suicidal ideation Yes all other systems are reviewed and are negative Mental Status Exam Mental Status Exam Narrative: adequately dressed (griffindor sweater) and groomed, diminutive, short hair. cooperative, no PMA/PMR. speech incr rate, nml amount, tone, latency. thoughts linear and logical. affect full range, normo-intense, non-labile. mood currently, nothing, but generally these days periods of severe anxiety alternating with feeling fine. +SI, MRE a couple of days ago. +HI, MRE 1-2 weeks ago. denies AVH. Diagnostics Vital Signs (24Hr): Vital Signs - 24 hr 08/05/23 21:35 08/06/23 08:40 Temperature 97.7 F 97.8 F Pulse Rate 75 63 Respiratory Rate 18 18 Blood Pressure 114/56 L 119/55 L Pulse Oximetry 94 98 Oxygen Delivery Method Room Air Room Air BMI result Body Mass Index 21.5 Labs 08/03/23 18:54 08/03/23 18:54 Labs: Laboratory Results - last 48 hr 08/05/23 08:24 Estimat Average Glucose 97 Hemoglobin A1c % 5.0 Triglycerides 70 Cholesterol 165 LDL Cholesterol, Calc 97 HDL Cholesterol 54 Vitamin B12 370 Folate 5.9 TSH 6.18 H Free T4 0.82 Medications Medications Current Medications Acetaminophen (Acetaminophen 325 Mg Tablet) 650 mg PO Q6H PRN PRN Reason: Headache/Pain Mild Scale (1-3) Al Hydroxide/Mg Hydroxide (Magnesium Hydrox/Alum Hydrox 30 Ml Oral.Susp) 30 ml PO Q6H PRN PRN Reason: Heartburn/Nausea Benzocaine (Throat Lozenge, Medicated Lozenge) 1 lozenge MUCOUS MEM Q2H PRN PRN Reason: Sore Throat Carbamazepine (Carbamazepine Er 100 Mg Tab.Er.12h) 100 mg PO BID POLA Last Admin: 08/06/23 11:16 Dose: Not Given Diphenhydramine HCl (Diphenhydramine Hcl 25 Mg Capsule) 50 mg PO Q6H PRN PRN Reason: allergy Hydroxyzine HCl (Hydroxyzine Hcl 25 Mg Tablet) 25 mg PO Q6H PRN PRN Reason: Anxiety Lorazepam (Lorazepam 0.5 Mg Tablet) 0.5 mg PO DAILY PRN PRN Reason: Anxiety Last Admin: 08/05/23 22:06 Dose: 0.5 mg Magnesium Hydroxide (Milk Of Magnesia 30 Ml Oral.Susp) 30 ml PO DAILY PRN PRN Reason: Constipation Multi-Ingred Medicated Throat [place] (Throat [place], Medicated 177 Ml Bottle) 1 spray MUCOUS MEM Q2H PRN PRN Reason: Sore Throat Nicotine Polacrilex (Nicotine Polacrilex 2 Mg Gum) 2 mg BUCCAL Q2H PRN PRN Reason: Nicotine Cravings Trazodone HCl (Trazodone Hcl 50 Mg Tablet) 50 mg PO BEDTIME PRN PRN Reason: Insomnia Allergies Allergies Allergy/AdvReac Type Severity Reaction Status Date / Time nut - unspecified [NUTS] Allergy Severe SWELLING Verified 12/23/21 19:12 peanut [PEANUT] Allergy Severe FACIAL Verified 12/23/21 19:12 SWELLING, THROAT SWELLING tree nut [TREE NUT] Allergy Severe THROAT Verified 12/23/21 19:12 SWELLING, FACIAL SWELLING Assessment & Plan Assessment & Plan (1) Bipolar disorder: Status: Acute Code(s): F31.9 - Bipolar disorder, unspecified Plan start tegretol 100 BID for presumed bipolar disorder 08/07 continue tx. strep test- neg. Reason for continued inpatient stay Substantial Risk for: inability to function Time Spent With Patient Time: Total time managing care of this patient today ____ minutes.
[2023-08-06] MEDS: carBAMazepine ER 100 MG TAB.ER.12H PO ×2 (12:36→22:35)
[2023-08-06] MEDS: Throat Lozenge, Medicated LOZENGE 1 LOZENGE MUCOUS MEM (16:56)
[2023-08-06] MEDS: Throat Spray, Medicated 177 ML BOTTLE 1 SPRAY MUCOUS MEM (19:59)
[2023-08-06 22:19] VITALS: BP 130/80; PULSE 106; RESP 19; TEMP 36.8; O2SAT 94
[2023-08-06] MEDS: traZODone HCL 50 MG TABLET PO (22:35)
[2023-08-06] MEDS: Acetaminophen 325 MG TABLET 650 MG PO (22:35)
[2023-08-06 23:40] LABS: IDNOW Serial# 08D9AD1C; Strep A Nucleic Acid Negative (Negative)
[2023-08-07] MEDS: diphenhydrAMINE HCL 25 MG CAPSULE 50 MG PO (00:03)
--- NOTE | 2023-08-07 14:15 | P.PNPSI_ITS ---
Subjective Subjective Date of Service: 08/07/23 Reason For Visit: SI Subjective Notes: Conditional Voluntary Interim History: Pt has had complaint of s/e of tegretol with itchiness in mouth in pm after tegretol dose- has taken 3 doses but this am has been held- it has only been in pm dose- but to be on safe side dcing today - Pt reports they were being treated for mood changes- We discussed trial of abilify as alternative to tegretol- no hx of seizures Pt agrees we discussed risk/benefits including weight gain, diabetes and TD Grandmother was present during discussion Medication Compliance: Yes Side effects from medications: Yes (tegretol caused itchy mucous membranes in mouth) Attending Groups: Yes Review of Systems Acute medical concerns: Yes just the itchy mouth Review of Systems: otherwise unchanged Mental Status Exam Mental Status Exam Narrative: young appearing 22 yo - dressed in pjs and a baseball jacket, glasses Patient Appearance: Appropriate and Unkempt Patient Orientation: Person, Place, Time and Situation Level of Consciousness: Awake Patient Behavior: Appropriate and Restless Mood Description: Calm Affect Description: Calm and Appropriate Patient Cognition Impaired: No Ability to Follow Directions: Good Speech Pattern: Clear Hallucinations: None Delusions: Not Present Thought Process: Intact Thought Content: positive for Intact Depressive Symptoms: Diff. Making Decisions and Increased Irritability Judgement: Fair Diagnostics Vital Signs (24Hr): Vital Signs - 24 hr 08/06/23 22:19 Temperature 98.3 F Pulse Rate 106 H Respiratory Rate 19 Blood Pressure 130/80 Pulse Oximetry 94 Oxygen Delivery Method Room Air BMI result Body Mass Index 21.5 Labs 08/03/23 18:54 08/03/23 18:54 Labs: Laboratory Results - last 48 hr 08/06/23 08/06/23 14:30 22:55 Vag/Rect Grp B Strep PCR Cancelled S. pyogenes GrpA ZABRINA Negative Medications Medications Current Medications Acetaminophen (Acetaminophen 325 Mg Tablet) 650 mg PO Q6H PRN PRN Reason: Headache/Pain Mild Scale (1-3) Last Admin: 08/06/23 22:35 Dose: 650 mg Al Hydroxide/Mg Hydroxide (Magnesium Hydrox/Alum Hydrox 30 Ml Oral.Susp) 30 ml PO Q6H PRN PRN Reason: Heartburn/Nausea Benzocaine (Throat Lozenge, Medicated Lozenge) 1 lozenge MUCOUS MEM Q2H PRN PRN Reason: Sore Throat Last Admin: 08/06/23 16:56 Dose: 1 lozenge Carbamazepine (Carbamazepine Er 100 Mg Tab.Er.12h) 100 mg PO BID POLA Last Admin: 08/07/23 12:23 Dose: Not Given Diphenhydramine HCl (Diphenhydramine Hcl 25 Mg Capsule) 50 mg PO Q6H PRN PRN Reason: allergy Last Admin: 08/07/23 00:03 Dose: 50 mg Hydroxyzine HCl (Hydroxyzine Hcl 25 Mg Tablet) 25 mg PO Q6H PRN PRN Reason: Anxiety Lorazepam (Lorazepam 0.5 Mg Tablet) 0.5 mg PO DAILY PRN PRN Reason: Anxiety Last Admin: 08/05/23 22:06 Dose: 0.5 mg Magnesium Hydroxide (Milk Of Magnesia 30 Ml Oral.Susp) 30 ml PO DAILY PRN PRN Reason: Constipation Multi-Ingred Medicated Throat [place] (Throat [place], Medicated 177 Ml Bottle) 1 spray MUCOUS MEM Q2H PRN PRN Reason: Sore Throat Last Admin: 08/06/23 19:59 Dose: 1 spray Nicotine Polacrilex (Nicotine Polacrilex 2 Mg Gum) 2 mg BUCCAL Q2H PRN PRN Reason: Nicotine Cravings Trazodone HCl (Trazodone Hcl 50 Mg Tablet) 50 mg PO BEDTIME PRN PRN Reason: Insomnia Last Admin: 08/06/23 22:35 Dose: 50 mg Allergies Allergies Allergy/AdvReac Type Severity Reaction Status Date / Time nut - unspecified [NUTS] Allergy Severe SWELLING Verified 12/23/21 19:12 peanut [PEANUT] Allergy Severe FACIAL Verified 12/23/21 19:12 SWELLING, THROAT SWELLING tree nut [TREE NUT] Allergy Severe THROAT Verified 12/23/21 19:12 SWELLING, FACIAL SWELLING Assessment & Plan Assessment & Plan (1) Bipolar disorder: Status: Acute Code(s): F31.9 - Bipolar disorder, unspecified Assessment and Plan: 08/07-dc tegretol try abilify low dose given also ? ASD also started levothyroxine low dose for slight elevation of TSH (2) Elevated WBC count: Status: Acute Code(s): D72.829 - Elevated white blood cell count, unspecified (3) High-functioning autism spectrum disorder: Status: Acute Code(s): F84.0 - Autistic disorder Plan start tegretol 100 BID for presumed bipolar disorder 08/07 continue tx. strep test- neg. 08/07 [facility] dc tegretol try abilify low dose 2mg Patient educated on: medication risk/benefits Informed Consent: understands and further education needed (didn't get chance to discuss levothyroxine will tomorrow) Reason for continued inpatient stay Substantial Risk for: harm to self and rapid decompensation Time Spent With Patient Time: Total time managing care of this patient today ____ minutes.
[2023-08-07 18:46] LABS: Appearance Urine Clear; Color Urine Yellow; Glucose Urine UA Negative (Negative); Leukocyte Esterase Urine Trace (Negative); Nitrite Urine Negative (Negative); Specific Gravity - Urine 1.025 (1.005-1.025); UMIC TRIGGER UA YES; Urine Blood Negative (Negative); Urine Ketones Negative (Negative); Urine Protein Negative (Neg-Trace)
[2023-08-07 18:49] LABS: Bacteria Urine Trace (None Seen); Hyaline Casts Urine 0-2 /LPF (0-2); RBC Urine 0-2 /HPF (0-2); WBC Urine 0-5 /HPF (0-5)
[2023-08-07 21:44] VITALS: BP 130/69; PULSE 86; RESP 18; TEMP 36.7; O2SAT 99
[2023-08-07] MEDS: ARIPiprazole 2 MG TABLET PO (22:51)
[2023-08-07] MEDS: Acetaminophen 325 MG TABLET 650 MG PO (22:51)
[2023-08-07] MEDS: LORazepam 0.5 MG TABLET PO (22:52)
[2023-08-07] MEDS: traZODone HCL 50 MG TABLET PO (22:52)
[2023-08-08] MEDS: Levothyroxine Sodium 25 MCG TABLET 12.5 MCG PO (07:06)
[2023-08-08 10:30] VITALS: BP 112/60; PULSE 76; RESP 16; TEMP 36.8; O2SAT 99
--- NOTE | 2023-08-08 11:16 | HO.PSYCHPN ---
Subjective Subjective Date of Service: 08/08/23 Reason For Visit: SI Subjective Notes: Conditional Voluntary Interim History: Pt tolerating abilify last pm, also started levothyroxine today for elevated TSH- only taking 2mg abilify tegretol dced still sore throat but not itchy mouth Denies current si, nursing reports some labile mood yesterday afternoon requiring redirection but ... did respond to redirection Medication Compliance: Yes Side effects from medications: No Attending Groups: Yes Review of Systems rechecked cbc wbc down to normal and 2nd UA not as remarkable Review of Systems: ognoing sore throat but no itchy mouth denied burning urination or frequency, no cough or cp, no pain anywhere other than throat. Mental Status Exam Mental Status Exam Narrative: just woke up says friends say she looks high when she wakes up Patient Appearance: Disheveled and Unkempt Patient Orientation: Person, Place, Time and Situation Level of Consciousness: Drowsy Patient Behavior: Appropriate Mood Description: Anxious Affect Description: Appropriate Ability to Follow Directions: Good Speech Pattern: Clear Hallucinations: None Thought Process: Distracted Thought Content: positive for Intact Depressive Symptoms: Increased Anxiety, Increased Irritability and Difficulty Concentrating Abnormal Motor Activity Signs and Symptoms: Restlessness Judgement: Fair Diagnostics Vital Signs (24Hr): Vital Signs - 24 hr 08/07/23 21:44 Temperature 98.1 F Pulse Rate 86 Respiratory Rate 18 Blood Pressure 130/69 Pulse Oximetry 99 Oxygen Delivery Method Room Air BMI result Body Mass Index 21.5 Labs 08/08/23 11:31 08/03/23 18:54 Labs: Laboratory Results - last 48 hr 08/06/23 08/06/23 08/07/23 14:30 22:55 17:00 Urine Color Yellow Urine Appearance Clear Urine pH 6.0 Ur Specific [place] 1.025 Urine Protein Negative Urine Glucose (UA) Negative Urine Ketones Negative Urine Blood Negative Urine Nitrite Negative Ur Leukocyte Esterase Trace H Urine RBC 0-2 Urine WBC 0-5 Ur Squamous Epith Cells 3-5 Urine Bacteria Trace Hyaline Casts 0-2 Vag/Rect Grp B Strep PCR Cancelled S. pyogenes GrpA ZABRINA Negative Medications Medications Current Medications Acetaminophen (Acetaminophen 325 Mg Tablet) 650 mg PO Q6H PRN PRN Reason: Headache/Pain Mild Scale (1-3) Last Admin: 08/07/23 22:51 Dose: 650 mg Al Hydroxide/Mg Hydroxide (Magnesium Hydrox/Alum Hydrox 30 Ml Oral.Susp) 30 ml PO Q6H PRN PRN Reason: Heartburn/Nausea Aripiprazole (Aripiprazole 2 Mg Tablet) 2 mg PO BEDTIME [facility] Last Admin: 08/07/23 22:51 Dose: 2 mg Benzocaine (Throat Lozenge, Medicated Lozenge) 1 lozenge MUCOUS MEM Q2H PRN PRN Reason: Sore Throat Last Admin: 08/06/23 16:56 Dose: 1 lozenge Diphenhydramine HCl (Diphenhydramine Hcl 25 Mg Capsule) 50 mg PO Q6H PRN PRN Reason: allergy Last Admin: 08/07/23 00:03 Dose: 50 mg Hydroxyzine HCl (Hydroxyzine Hcl 25 Mg Tablet) 25 mg PO Q6H PRN PRN Reason: Anxiety Levothyroxine Sodium (Levothyroxine Sodium 25 Mcg Tablet) 12.5 mcg PO DAILY@0600 [facility] Last Admin: 08/08/23 07:06 Dose: 12.5 mcg Lorazepam (Lorazepam 0.5 Mg Tablet) 0.5 mg PO DAILY PRN PRN Reason: Anxiety Last Admin: 08/07/23 22:52 Dose: 0.5 mg Magnesium Hydroxide (Milk Of Magnesia 30 Ml Oral.Susp) 30 ml PO DAILY PRN PRN Reason: Constipation Multi-Ingred Medicated Throat [place] (Throat [place], Medicated 177 Ml Bottle) 1 spray MUCOUS MEM Q2H PRN PRN Reason: Sore Throat Last Admin: 08/06/23 19:59 Dose: 1 spray Nicotine Polacrilex (Nicotine Polacrilex 2 Mg Gum) 2 mg BUCCAL Q2H PRN PRN Reason: Nicotine Cravings Trazodone HCl (Trazodone Hcl 50 Mg Tablet) 50 mg PO BEDTIME PRN PRN Reason: Insomnia Last Admin: 08/07/23 22:52 Dose: 50 mg Allergies Allergies Allergy/AdvReac Type Severity Reaction Status Date / Time nut - unspecified [NUTS] Allergy Severe SWELLING Verified 08/07/23 16:24 peanut [PEANUT] Allergy Severe FACIAL Verified 08/07/23 16:24 SWELLING, THROAT SWELLING tree nut [TREE NUT] Allergy Severe THROAT Verified 08/07/23 16:24 SWELLING, FACIAL SWELLING carbamazepine [From Tegretol] Allergy Intermediate Itching Verified 08/07/23 16:31 Assessment & Plan Assessment & Plan (1) Bipolar disorder: Status: Acute Code(s): F31.9 - Bipolar disorder, unspecified Assessment and Plan: 08/07-dc tegretol try abilify low dose given also ? ASD also started levothyroxine low dose for slight elevation of TSH (2) Elevated WBC count: Status: Acute Code(s): D72.829 - Elevated white blood cell count, unspecified (3) High-functioning autism spectrum disorder: Status: Acute Code(s): F84.0 - Autistic disorder Plan start tegretol 100 BID for presumed bipolar disorder 08/07 continue tx. strep test- neg. 08/07 [facility] dc tegretol try abilify low dose 2mg 08/08 continue current treatment- Patient educated on: medication risk/benefits and other (ua and cbc) Informed Consent: understands Reason for continued inpatient stay Substantial Risk for: harm to self and rapid decompensation Time Spent With Patient Time: Total time managing care of this patient today ____ minutes.
[2023-08-08 11:35] LABS: MANUAL DIFF FLAG NO
[2023-08-08 11:36] LABS: Basophils Absolute Auto 0.1 X10*3/uL (0.0-0.2); Basophils Percent Auto 0.7 % (0-2); Eosinophils Absolute Auto 0.2 X10*3/uL (0.0-0.4); Eosinophils Percent Auto 2.2 % (0-4); Hematocrit 41.1 % (37.0-47.0); Hemoglobin 14.2 g/dl (12.0-16.0); Imm Gran Abs Auto 0.06 X10*3/uL (0.00-0.03); Imm Gran Pct Auto 0.7 % (0.0-0.4); Lymphocytes Absolute Auto 1.5 X10*3/uL (1.2-4.9); Lymphocytes Percent Auto 16.5 % (20-40); Mean Corpuscular HGB Conc 34.5 g/dl (31.0-35.0); Mean Platelet Volume 9.3 fL (9.4-12.3); Monocytes Absolute Auto 0.7 X10*3/uL (0.1-1.2); Monocytes Percent Auto 7.6 % (2-11); Neutrophils Absolute Auto 6.4 x10*3/uL (2.0-8.3); Neutrophils Percent Auto 72.3 % (45-73); Platelet Count 361 X10*3/uL (160-400); Red Blood Count 4.89 X10*6/uL (4.20-5.50); Red Cell Distribution Width 12.6 % (11.0-16.0); White Blood Count 8.8 X10*3/uL (4.8-10.8)
[2023-08-08 20:10] VITALS: BP 130/65; PULSE 93; RESP 16; TEMP 36.8; O2SAT 98
[2023-08-08] MEDS: ARIPiprazole 2 MG TABLET PO (22:07)
[2023-08-08] MEDS: LORazepam 0.5 MG TABLET PO (22:09)
[2023-08-08] MEDS: diphenhydrAMINE HCL 25 MG CAPSULE 50 MG PO (22:09)
[2023-08-08] MEDS: traZODone HCL 50 MG TABLET PO (22:09)
[2023-08-08] MEDS: Throat Lozenge, Medicated LOZENGE 1 LOZENGE MUCOUS MEM (22:10)
[2023-08-09] MEDS: Levothyroxine Sodium 25 MCG TABLET 12.5 MCG PO (06:48)
[2023-08-09 11:32] VITALS: BP 115/70; PULSE 109; TEMP 36.9; O2SAT 99
[2023-08-09] MEDS: Acetaminophen 325 MG TABLET 650 MG PO (15:38)
--- NOTE | 2023-08-09 17:43 | HO.PSYCHPN ---
Subjective Subjective Date of Service: 08/09/23 Reason For Visit: SI Interim History: seen with mother, SW. then seen alone. pt requesting discharge, has been referred to respite. did not tolerate tegretol, reportedly, and dubiously, so was started on abilify. agreeable to increase abilify to 4 mg as of tonight. no side effects from abilify at the moment. per staff, was elated, loud, instrusive with peers over w/e. sleeping well. Mental Status Exam Mental Status Exam Narrative: adequately dressed and groomed, diminutive, short hair. cooperative, no PMA/PMR. speech incr rate, nml amount, tone, latency. thoughts linear and logical. affect full range, normo-intense, non-labile. mood pretty good. no SI/SIBI/HI/AVH expressed. Diagnostics Vital Signs (24Hr): Vital Signs - 24 hr 08/08/23 20:10 08/09/23 11:32 Temperature 98.2 F 98.4 F Pulse Rate 93 109 H Respiratory Rate 16 Blood Pressure 130/65 115/70 Pulse Oximetry 98 99 Oxygen Delivery Method Room Air Room Air BMI result Body Mass Index 21.5 Labs 08/08/23 11:31 08/03/23 18:54 Labs: Laboratory Results - last 48 hr 08/07/23 08/08/23 17:00 11:31 WBC 8.8 RBC 4.89 Hgb 14.2 Hct 41.1 MCV 84.0 MCH 29.0 MCHC 34.5 RDW 12.6 Plt Count 361 MPV 9.3 L Immature Gran % (Auto) 0.7 H Neut % (Auto) 72.3 Lymph % (Auto) 16.5 L [place] % (Auto) 7.6 Eos % (Auto) 2.2 Baso % (Auto) 0.7 Lymph # (Auto) 1.5 [place] # (Auto) 0.7 Eos # (Auto) 0.2 Baso # (Auto) 0.1 Abs Immat Gran (auto) 0.06 H Absolute Neuts (auto) 6.4 Absolute Nucleated RBC 0.000 Nucleated RBC % (auto) 0.0 Urine Color Yellow Urine Appearance Clear Urine pH 6.0 Ur Specific [place] 1.025 Urine Protein Negative Urine Glucose (UA) Negative Urine Ketones Negative Urine Blood Negative Urine Nitrite Negative Ur Leukocyte Esterase Trace H Urine RBC 0-2 Urine WBC 0-5 Ur Squamous Epith Cells 3-5 Urine Bacteria Trace Hyaline Casts 0-2 Medications Medications Current Medications Acetaminophen (Acetaminophen 325 Mg Tablet) 650 mg PO Q6H PRN PRN Reason: Headache/Pain Mild Scale (1-3) Last Admin: 08/09/23 15:38 Dose: 650 mg Al Hydroxide/Mg Hydroxide (Magnesium Hydrox/Alum Hydrox 30 Ml Oral.Susp) 30 ml PO Q6H PRN PRN Reason: Heartburn/Nausea Aripiprazole (Aripiprazole 2 Mg Tablet) 4 mg PO BEDTIME FOR[facility]LY [facility], [facility] Benzocaine (Throat Lozenge, Medicated Lozenge) 1 lozenge MUCOUS MEM Q2H PRN PRN Reason: Sore Throat Last Admin: 08/08/23 22:10 Dose: 1 lozenge Diphenhydramine HCl (Diphenhydramine Hcl 25 Mg Capsule) 50 mg PO Q6H PRN PRN Reason: allergy Last Admin: 08/08/23 22:09 Dose: 50 mg Hydroxyzine HCl (Hydroxyzine Hcl 25 Mg Tablet) 25 mg PO Q6H PRN PRN Reason: Anxiety Levothyroxine Sodium (Levothyroxine Sodium 25 Mcg Tablet) 12.5 mcg PO DAILY@0600 POLA Last Admin: 08/09/23 06:48 Dose: 12.5 mcg Magnesium Hydroxide (Milk Of Magnesia 30 Ml Oral.Susp) 30 ml PO DAILY PRN PRN Reason: Constipation Multi-Ingred Medicated Throat [place] (Throat [place], Medicated 177 Ml Bottle) 1 spray MUCOUS MEM Q2H PRN PRN Reason: Sore Throat Last Admin: 08/06/23 19:59 Dose: 1 spray Nicotine Polacrilex (Nicotine Polacrilex 2 Mg Gum) 2 mg [place] Q2H PRN PRN Reason: Nicotine Cravings Trazodone HCl (Trazodone Hcl 50 Mg Tablet) 50 mg PO BEDTIME PRN PRN Reason: Insomnia Last Admin: 08/08/23 22:09 Dose: 50 mg Allergies Allergies Allergy/AdvReac Type Severity Reaction Status Date / Time nut - unspecified [NUTS] Allergy Severe SWELLING Verified 08/07/23 16:24 peanut [PEANUT] Allergy Severe FACIAL Verified 08/07/23 16:24 SWELLING, THROAT SWELLING tree nut [TREE NUT] Allergy Severe THROAT Verified 08/07/23 16:24 SWELLING, FACIAL SWELLING carbamazepine [From Tegretol] Allergy Intermediate Itching Verified 08/07/23 16:31 Assessment & Plan Assessment & Plan (1) Bipolar disorder: Status: Acute Code(s): F31.9 - Bipolar disorder, unspecified Assessment and Plan: 08/07-dc tegretol try abilify low dose given also ? ASD also started levothyroxine low dose for slight elevation of TSH (2) Elevated WBC count: Status: Acute Code(s): D72.829 - Elevated white blood cell count, unspecified (3) High-functioning autism spectrum disorder: Status: Acute Code(s): F84.0 - Autistic disorder Plan start tegretol 100 BID for presumed bipolar disorder 08/07 continue tx. strep test- neg. 08/07 nsm dc tegretol try abilify low dose 2mg 08/08 continue current treatment- 08/09: increase abilify dosing to 4 mg QHS. mood appeasr to be improved. Reason for continued inpatient stay Substantial Risk for: rapid decompensation Time Spent With Patient Time: Total time managing care of this patient today __35__ minutes.
[2023-08-09 20:21] VITALS: BP 112/76; RESP 16; TEMP 36.4; O2SAT 98
[2023-08-09] MEDS: ARIPiprazole 2 MG TABLET 4 MG PO (23:26)
[2023-08-09] MEDS: traZODone HCL 50 MG TABLET PO (23:27)
[2023-08-09] MEDS: diphenhydrAMINE HCL 25 MG CAPSULE 50 MG PO (23:27)
[2023-08-10] MEDS: Levothyroxine Sodium 25 MCG TABLET 12.5 MCG PO (06:52)
[2023-08-10 08:07] VITALS: BP 127/66; PULSE 82; RESP 16; TEMP 36.2; O2SAT 96
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
[2023-08-10] MEDS: ARIPiprazole 2 MG TABLET 4 MG PO (21:52)
[2023-08-10] MEDS: diphenhydrAMINE HCL 25 MG CAPSULE 50 MG PO (21:56)
[2023-08-10] MEDS: traZODone HCL 50 MG TABLET PO (21:57)
[2023-08-10 22:12] VITALS: BP 119/74; PULSE 95; RESP 16; TEMP 36.4; O2SAT 99
[2023-08-11] MEDS: Levothyroxine Sodium 25 MCG TABLET 12.5 MCG PO (06:31)
[2023-08-11 09:00] VITALS: BP 141/88; PULSE 93; RESP 16; TEMP 36.6; O2SAT 99
== END 2023-08-11 11:35 | disposition home or self-care (01) | DRG 753 ==
LOC: HO.ED 08-04 02:55 → HO.PADLT16 08-04 13:54
PROVIDERS: Physician Assistant; Psychiatry & Neurology Psychiatry; Social Worker; Admitting Provider Psychiatry & Neurology Psychiatry; Emergency Provider Emergency Medicine; Visit Provider Psychiatry & Neurology Psychiatry
DX: F31.10 Bipolar disorder, current episode manic without psychotic features, unspecified (principal); R45.851 Suicidal ideations; F84.0 Autistic disorder; F90.9 Attention-deficit hyperactivity disorder, unspecified type; Z20.822 Contact with and (suspected) exposure to COVID-19; Z79.890 Hormone replacement therapy; Z79.899 Other long term (current) drug therapy
CPT/HCPCS: 36415; 80053; 80061; 80143; 80179; 80307; 81001; 81025; 82607; 82746; 83036; 84439; 84443; 85025; 87070; 87086; 87635; 87651; 99285; S9485

== ENCOUNTER → 2023-08-04 13:35 | Outpatient (BNV) | payer OTHER, SELFPAY | PROVIDERS: Admitting Provider Psychiatry & Neurology Psychiatry; Emergency Provider Emergency Medicine; Visit Provider Psychiatry & Neurology Psychiatry | DX: F31.4 Bipolar disorder, current episode depressed, severe, without psychotic features (principal); F84.0 Autistic disorder; D72.829 Elevated white blood cell count, unspecified | CPT/HCPCS: 90792; 99231; 99232; 99239 ==

== ENCOUNTER 2023-10-16 22:14 | Emergency (ER) | payer OTHER, SELFPAY ==
--- NOTE | 2023-10-16 | ECG_ITS ---
Test Reason : CHEST PAIN Blood Pressure : / mmHG Vent. Rate : 068 BPM Atrial Rate : 068 BPM P-R Int : 150 ms QRS Dur : 078 ms QT Int : 374 ms P-R-T Axes : 062 052 044 degrees QTc Int : 397 ms Normal sinus rhythm with sinus arrhythmia RSR' or QR pattern in V1 suggests right ventricular conduction delay Otherwise normal ECG When compared with ECG of 19-NOV-2022 17:00, Heart rate has decreased Referred By: Generic ED Physician Electronically Signed By:RABIA GRAY MD
--- NOTE | ~2023-10-16 | CT_ITS ---
EXAMINATION: CT HEAD WITHOUT CONTRAST CLINICAL INFORMATION: Headache COMPARISON: None available. TECHNIQUE: Contiguous axial imaging was performed from the skull base to vertex without intravenous administration of contrast. This CT examination was performed using dose optimization techniques as appropriate, variously including the following: *Automated exposure control *Adjustment of mA and/or kV according to patient size (this includes techniques or standardized protocols for targeted exams where dose is matched to indication/reason for exam; i.e. extremities or head) *Use of iterative reconstruction technique DLP: 529 mGy-cm FINDINGS: There is no evidence of acute intracranial hemorrhage or territorial infarction. No abnormal mass-effect or midline shift is seen. Senior to white matter differentiation is well preserved. No extra-axial fluid collections are identified. The ventricles are normal in size. There is no abnormal attenuation within the brain parenchyma. The osseous structures and soft tissues are normal. The mastoid air cells and visualized portions of the paranasal sinuses are well-aerated. CT/CT head/brain wo IV con IMPRESSION: No acute intracranial pathology.
[2023-10-16 22:25] VITALS: BP 115/71; PULSE 64; RESP 20; TEMP 37; O2SAT 97; BMI 21.6
--- NOTE | 2023-10-16 23:44 | ED.CHESTPAIN ---
HPI - Chest Pain General Chief Complaint: Chest Pain Stated Complaint: chest pain rapid HR Time Seen by Provider: 10/16/23 23:05 Source: patient and family (Mother) Mode of arrival: ambulatory Limitations: no limitations History of Present Illness HPI narrative: 23-year-old female came in [facility] for evaluation of intermittent headache and palpitation x1 week. For the past week patient been having intermittent palpitation and feels heart racing, no CP, no SOB. Patient also been getting intermittent it occipital headache for the last week on and off, no fever, no chills, no CP, no SOB. Related Data Home Medications Medication Instructions Recorded Confirmed lorazepam 0.5 mg tablet 0.5 mg PO DAILY PRN Anxiety 08/03/23 08/03/23 Previous Rx's Medication Instructions Recorded aripiprazole 2 mg tablet (Abilify) 4 mg (2 x 2 mg) PO BEDTIME 30 days 08/10/23 #60 tabs levothyroxine 25 mcg tablet 12.5 mcg (1/2 x 25 mcg) PO 08/10/23 DAILY@0600 30 days #15 tabs trazodone 50 mg tablet 50 mg PO BEDTIME PRN Insomnia 30 08/10/23 days #30 tabs Allergies Allergy/AdvReac Type Severity Reaction Status Date / Time nut - unspecified [NUTS] Allergy Severe SWELLING Verified 10/16/23 22:29 peanut [PEANUT] Allergy Severe FACIAL Verified 10/16/23 22:29 SWELLING, THROAT SWELLING tree nut [TREE NUT] Allergy Severe THROAT Verified 10/16/23 22:29 SWELLING, FACIAL SWELLING carbamazepine [From Tegretol] Allergy Intermediate Itching Verified 10/16/23 22:29 Review of Systems Review of Systems: All other systems are reviewed and are negative Constitutional: Reports as per HPI and Reports no additional constitutional complaints Eyes: Reports as per HPI and Reports no additional eye complaints Reports system reviewed and no additional complaints, except as documented Cardiovascular: Reports as per HPI and Reports no additional cardiovascular complaints Respiratory: Reports as per HPI and Reports no additional respiratory complaints Gastrointestinal: Reports as per HPI and Reports no additional gastrointestinal complaints Genitourinary: Reports no additional female genitourinary complaints Musculoskeletal: Reports no additional musculoskeletal complaints Skin/Breast: Reports system reviewed and no additional complaints, except as docu Psychiatric: Reports no additional psychiatric complaints Endocrine: Reports no additional endocrine complaints Hematologic/Lymphatic: Reports no additional hematologic/lymphatic complaints Allergic/Immunologic: Reports no additional allergic/immunologic complaints Reports system reviewed and no additional complaints, except as documented and Reports Abnormal speech present [facility]LY [facility], [facility] Past Medical History Medical History Elevated WBC count High-functioning autism spectrum disorder Depression ADHD Social History Household Members: Family Household Members Other:: 3 Housing: Apartment Do you presently have visiting nurse or other home services: No Patient Tobacco Use Status: Never used Tobacco e-Cigarette/Vaping Use: Never Used Second Hand Smoke Exposure: No Substance Use Type: Caffiene Advance Directives: No Advance Directives Information Provided: No service: No Sexual orientation: Bisexual Physical Exam Vital Signs: Vital Signs: Last Vital Signs Temp 98.6 F 10/16/23 22:25 Pulse 64 10/16/23 22:25 Resp 20 10/16/23 22:25 BP 115/71 10/16/23 22:25 Pulse Ox 97 10/16/23 22:25 O2 Del Method Room Air 10/16/23 22:25 BMI result Body Mass Index 21.6 Vital signs have been reviewed and appear to be correct. Blood pressure elevated. Heart rate normal. Respiratory rate normal. Temperature normal. Oxygen saturation normal. Appearance: Alert. Oriented X3. No acute distress. Head: Normal external exam. Normocephalic. Atraumatic. No [place] signs noted. No raccoon eyes noted Eyes: PERRLA. EOMI. Conjunctiva and sclera normal. Eyelids normal. ENT: TM's Normal. Pharynx normal. Uvula midline. Moist mucous membranes. No trismus noted. No drooling noted. No muffled voice noted. Neck: Normal inspection. Neck supple. FROM. No adenopathy. Thyroid Normal. No meningeal signs. No neck mass noted. CVS: Normal heart rate and rhythm. Heart sound normal. No murmurs noted. Pulses normal throughout. Respiratory: No respiratory distress. Painless inspiration. Breath sounds normal. No wheezes/rales/rhonchi noted. Chest nontender. No accessory muscle usage noted or decreased air movement noted. Abdomen: Soft and nontender. Bowel sounds normal in all 4 quadrants. No distention noted. No organomegaly noted. No visible injury noted. Back: No CVA tenderness. Full range of motion noted. Skin: Skin warm and dry. Normal skin color. Normal skin turgor. No rashes/lesions/lacerations noted. Extremities: No lower extremity edema. Extremities exhibit normal range of motion. Extremities nontender. Neuro: Oriented X 3. Cranial nerve exam: II-XII are grossly intact No motor deficit. No sensory deficit. Reflexes normal. Course Reevaluation(s) Reevaluation #1: 23-year-old female presented with intermittent headache x1 week, normal neuro exam and unremarkable head CT. Patient also been complaining of intermittent chest pain, unremarkable labs except for leukocytosis that patient normally has. Time: 01:44 Medical Decision Making Differential Diagnosis Differential Diagnoses: The differential diagnosis associated with the presentation includes (Pulmonary embolism, ACS, electrolyte abnormality, severe anemia, intracranial bleed.) Admission/Observation Consideration of admission/observation: Escalation of care including admission/observation considered Lab Data MDM Lab Attestation statement: I reviewed the patient's lab results. 10/16/23 23:48 10/16/23 23:48 Labs: Lab Results 10/16/23 10/16/23 Range/Units 23:48 23:49 WBC 14.6 H (4.8-10.8) X10*3/uL RBC 5.12 (4.20-5.50) X10*6/uL Hgb 15.1 (12.0-16.0) g/dl Hct 43.2 (37.0-47.0) % MCV 84.4 (80.0-98.0) fL MCH 29.5 (27.0-33.0) pg MCHC 35.0 (31.0-35.0) g/dl RDW 12.9 (11.0-16.0) % Plt Count 428 H (160-400) X10*3/uL MPV 9.5 (9.4-12.3) fL Immature Gran % (Auto) 0.5 H (0.0-0.4) % Neut % (Auto) 86.4 H (45-73) % Lymph % (Auto) 7.9 L (20-40) % [place] % (Auto) 3.8 (2-11) % Eos % (Auto) 1.0 (0-4) % Baso % (Auto) 0.4 (0-2) % Lymph # (Auto) 1.2 (1.2-4.9) X10*3/uL [place] # (Auto) 0.6 (0.1-1.2) X10*3/uL Eos # (Auto) 0.1 (0.0-0.4) X10*3/uL Baso # (Auto) 0.1 (0.0-0.2) X10*3/uL Abs Immat Gran (auto) 0.07 H (0.00-0.03) X10*3/uL Absolute Neuts (auto) 12.6 H (2.0-8.3) x10*3/uL Absolute Nucleated RBC 0.000 (0.0-0.012) X10*3/uL Nucleated RBC % (auto) 0.0 (0.0-0.2) /100WBC D-Dimer High Sensitivty < 150 NG/ML Sodium 142 (135-145) mmol/L Potassium 4.0 (3.3-5.1) mmol/L Chloride 107 (96-108) mmol/L Carbon Dioxide 26 (22-29) mmol/L Anion Gap 13 (12-20) BUN 15 (9-16) mg/dL Creatinine 0.85 (0.5-1.4) mg/dL Estim Creat Clear Calc 63.8 Estimated GFR > 60 Random Glucose 107 (60-115) mg/dL Calcium 10.6 H D (8.4-10.2) mg/dL Total Bilirubin 0.2 (0.0-1.0) mg/dL AST 19 (5-31) U/L ALT 18 (0-31) U/L Alkaline Phosphatase 81 (39-117) U/L Troponin I High Sens < 2.7 (<3.5-17.0) ng/L Total Protein 7.8 (6.5-8.0) g/dL Albumin 4.6 (3.5-5.0) g/dL TSH 1.26 (0.32-4.0) uIU/mL Independent Interpretation I performed an independent interpretation of an: EKG (At 68 beats per minutes, normal axis deviation, normal intervals, no ST-T changes, no significant change from old EKG.) and CT Scan (Head: No acute intracranial pathology.) Radiology Impression Discussion of test interpretation with radiology: I have reviewed the radiologist's reading. Discharge Plan Discharge Clinical Impression: Chest pain, Headache Patient Disposition: Home, Self-Care Instructions: General Headache (ED), Chest Pain (ED) Prescriptions: No Action lorazepam 0.5 mg tablet 0.5 mg PO DAILY PRN (Reason: Anxiety) trazodone 50 mg Tablet 50 mg PO BEDTIME PRN (Reason: Insomnia) 30 Days Qty: 30 0RF aripiprazole [Abilify] 2 mg Tablet 4 mg PO BEDTIME 30 Days Qty: 60 0RF levothyroxine 25 mcg Tablet 12.5 mcg PO DAILY@0600 30 Days Qty: 15 0RF
[2023-10-16 23:54] LABS: Basophils Absolute Auto 0.1 X10*3/uL (0.0-0.2); Basophils Percent Auto 0.4 % (0-2); Eosinophils Absolute Auto 0.1 X10*3/uL (0.0-0.4); Hematocrit 43.2 % (37.0-47.0); Hemoglobin 15.1 g/dl (12.0-16.0); Imm Gran Abs Auto 0.07 X10*3/uL (0.00-0.03); Imm Gran Pct Auto 0.5 % (0.0-0.4); Lymphocytes Absolute Auto 1.2 X10*3/uL (1.2-4.9); Lymphocytes Percent Auto 7.9 % (20-40); MANUAL DIFF FLAG NO; Mean Corpuscular Hemoglobin 29.5 pg (27.0-33.0); Mean Corpuscular Volume 84.4 fL (80.0-98.0); Mean Platelet Volume 9.5 fL (9.4-12.3); Monocytes Absolute Auto 0.6 X10*3/uL (0.1-1.2); Monocytes Percent Auto 3.8 % (2-11); Neutrophils Absolute Auto 12.6 x10*3/uL (2.0-8.3); Neutrophils Percent Auto 86.4 % (45-73); Platelet Count 428 X10*3/uL (160-400); Red Blood Count 5.12 X10*6/uL (4.20-5.50); Red Cell Distribution Width 12.9 % (11.0-16.0); White Blood Count 14.6 X10*3/uL (4.8-10.8)
[2023-10-17 00:11] LABS: Alanine Aminotransferase 18 U/L (0-31); Albumin Level 4.6 g/dL (3.5-5.0); Alkaline Phosphatase 81 U/L (39-117); Anion Gap 13 (12-20); Aspartate Amino Transferase 19 U/L (5-31); Bilirubin Total 0.2 mg/dL (0.0-1.0); Blood Urea Nitrogen 15 mg/dL (9-16); Calcium 10.6 mg/dL (8.4-10.2); Carbon Dioxide 26 mmol/L (22-29); Chloride 107 mmol/L (96-108); Creatinine Clr Calc Pharmacy 63.8; Estimated Glomerular Filt Rate > 60; Glucose Random 107 mg/dL (60-115); Sodium 142 mmol/L (135-145); Total Protein 7.8 g/dL (6.5-8.0)
[2023-10-17 00:14] LABS: Troponin-I High Sensitivity < 2.7 ng/L (<3.5-17.0)
[2023-10-17 00:28] LABS: TSH reflex Free T4 1.26 uIU/mL (0.32-4.0)
[2023-10-17 00:35] LABS: D Dimer High Sensitivity < 150 NG/ML
== END 2023-10-17 02:05 | disposition home or self-care (01) ==
PROVIDERS: Emergency Medicine Emergency Medical Services; Emergency Provider Emergency Medicine
DX: R07.9 Chest pain, unspecified (principal); R51.9 Headache, unspecified
CPT/HCPCS: 36415; 70450; 80053; 84443; 84484; 85025; 85379; 93005; 99283; 99284

== ENCOUNTER 2024-09-26 10:36 | Outpatient (AMB) | payer OTHER, SELFPAY ==
--- NOTE | 2024-09-26 10:46 | MHC.OFFWIV ---
Intake Vital Signs 09/26/24 10:48 Height 4 ft 9 in Weight 100 lb BMI 21.6 BP 114/68 Blood Pressure Location Rt brachial Position Sitting Respiration 12 Pulse 89 Pulse Source Pulse Oximeter Temp 98.2 F Temp Source Oral Pulse Oximetry (%) 98 Oxygen Delivery Method Room Air Intake Visit Reasons: est/sore throat/ear pain Intake Note: patient complaining of sore throat and both ears pain since yesterday. Patient Tobacco Use Status: Never used Tobacco University Librarian Required: No Allergies nut - unspecified [NUTS] Allergy (Severe, Verified 09/26/24 10:53) SWELLING peanut [PEANUT] Allergy (Severe, Verified 09/26/24 10:53) FACIAL SWELLING, THROAT SWELLING tree nut [TREE NUT] Allergy (Severe, Verified 09/26/24 10:53) THROAT SWELLING, FACIAL SWELLING carbamazepine [From Tegretol] Allergy (Intermediate, Verified 09/26/24 10:53) Itching Medication List - Last Reconciled 09/26/24 by VIK Pearce- No Known Home Meds Do you need a note to return to daycare/school/sports/work: No HPI HPI Comments History of Present Illness Details *-dupliacte note, see other encounter same day PFSH Medical History Elevated WBC count High-functioning autism spectrum disorder Depression ADHD Social History Household Members: Family Household Members Other:: 3 Housing: Apartment Do you presently have visiting nurse or other home services: No Patient Tobacco Use Status: Never used Tobacco e-Cigarette/Vaping Use: Never Used Second Hand Smoke Exposure: No Substance Use Type: Caffiene service: No Sexual orientation: Bisexual Physical Exam Vital Signs: Last Vital Signs Temp 98.2 F 09/26/24 10:48 Pulse 89 09/26/24 10:48 Resp 12 09/26/24 10:48 BP 114/68 09/26/24 10:48 Pulse Ox 98 09/26/24 10:48 Oxygen Delivery Method Room Air 09/26/24 10:48 BMI result Body Mass Index 21.6 Results AMB Rapid Strep AMB Rapid Strep Negative Last Edit by Odin Box MA on 09/26/24 10:59 Results Reviewed Results Reviewed: Laboratory Last Values Strep Scn [facility] Negative 09/26/24 10:51 Assessment & Plan Assessment & Plan (1) Nasopharyngitis: Code(s): J00 - Acute nasopharyngitis [common cold] Plan: . Orders: Orders AMB Rapid Strep Screen Today Z13.9 - Encounter for screening, unspecified SARS-CoV2/FLU/RSV Today R09.89 - Other specified symptoms and signs involving the circulatory and respiratory systems Medications: Discontinued aripiprazole (Abilify) Discontinued Reason: Patient no longer taking 4 mg (2 x 2 mg) PO BEDTIME 30 days 60 tabs 0RF trazodone Discontinued Reason: Patient no longer taking 50 mg PO BEDTIME 30 days PRN 30 tabs 0RF Insomnia trazodone Discontinued Reason: Patient no longer taking 50 mg PO DAILY 14 tabs 0RF levothyroxine Discontinued Reason: Patient no longer taking 12.5 mcg (1/2 x 25 mcg) PO DAILY@0600 30 days 15 tabs 0RF aripiprazole (Abilify) Discontinued Reason: Patient no longer taking 2 mg PO BEDTIME 14 tabs 0RF Coding Level of Care Code Left Without Being Seen Diagnoses Nasopharyngitis J00
[2024-09-26 10:48] VITALS: BP 114/68; PULSE 89; RESP 12; TEMP 36.8; O2SAT 98; BMI 21.6
--- NOTE | 2024-09-26 10:50 | AM.OFFWIN_ITS ---
Intake Vital Signs 09/26/24 10:48 Height 4 ft 9 in Weight 100 lb BMI 21.6 BP 114/68 Blood Pressure Location Rt brachial Position Sitting Respiration 12 Pulse 89 Pulse Source Pulse Oximeter Temp 98.2 F Temp Source Oral Pulse Oximetry (%) 98 Oxygen Delivery Method Room Air Intake Visit Reasons: est/sore throat/ear pain Patient Tobacco Use Status: Never used Tobacco Allergies nut - unspecified [NUTS] Allergy (Severe, Verified 09/26/24 10:53) SWELLING peanut [PEANUT] Allergy (Severe, Verified 09/26/24 10:53) FACIAL SWELLING, THROAT SWELLING tree nut [TREE NUT] Allergy (Severe, Verified 09/26/24 10:53) THROAT SWELLING, FACIAL SWELLING carbamazepine [From Tegretol] Allergy (Intermediate, Verified 09/26/24 10:53) Itching Medication List - Last Reconciled 09/26/24 by VIK Pearce- No Known Home Meds HPI HPI Comments History of Present Illness Details Here today for sore throat that started yesterday assoc w/ painful swallowing. She also has a mild runny nose. She was exposed to a big crowd at a recent event. Tried benadryl as she has seasonal allergies. This did not help. Exam: Awake alert NAD Sclera and conjunctiva clear bilat Nares clear discharge, turbinates edematous L>R, no sinus tenderness with palpation bilat TM intact and clear bilat MMM, pharynx WNL RRR LS CTAB Plan Rapid Strep negative covid, flu RSV swab obtained, pending at this time. Advised to use supportive care such as fluids, rest, [id number] analgesics. Educated on reasons to return to the office. Patient will be called with results of the viral swab if it was positive. This note is constructed using voice recognition software. While every effort has been made to ensure accuracy in arts therapist, still errors may have been included Sometimes, these errors may affect the content or meaning of the given sentence . Total time spent caring for the patient today was 30 minutes. This includes time spent before the visit reviewing the chart, time spent during the visit, and time spent after the visit on documentation PFSH Medical History Elevated WBC count High-functioning autism spectrum disorder Depression ADHD Social History Household Members: Family Household Members Other:: 3 Housing: Apartment Do you presently have visiting nurse or other home services: No Patient Tobacco Use Status: Never used Tobacco e-Cigarette/Vaping Use: Never Used Second Hand Smoke Exposure: No Substance Use Type: Caffiene service: No Sexual orientation: Bisexual Physical Exam Vital Signs: Last Vital Signs Temp 98.2 F 09/26/24 10:48 Pulse 89 09/26/24 10:48 Resp 12 09/26/24 10:48 BP 114/68 09/26/24 10:48 Pulse Ox 98 09/26/24 10:48 Oxygen Delivery Method Room Air 09/26/24 10:48 BMI result Body Mass Index 21.6 Results AMB Rapid Strep AMB Rapid Strep Negative Last Edit by Odin Box MA on 09/26/24 10:59 Results Reviewed Results Reviewed: Laboratory Last Values Strep Scn [facility] Negative 09/26/24 10:51 Assessment & Plan Assessment & Plan (1) Nasopharyngitis: Code(s): J00 - Acute nasopharyngitis [common cold] Plan: . Orders: Orders AMB Rapid Strep Screen Today Z13.9 - Encounter for screening, unspecified SARS-CoV2/FLU/RSV Today R09.89 - Other specified symptoms and signs involving the circulatory and respiratory systems Medications: Discontinued aripiprazole (Abilify) Discontinued Reason: Patient no longer taking 4 mg (2 x 2 mg) PO BEDTIME 30 days 60 tabs 0RF trazodone Discontinued Reason: Patient no longer taking 50 mg PO BEDTIME 30 days PRN 30 tabs 0RF Insomnia trazodone Discontinued Reason: Patient no longer taking 50 mg PO DAILY 14 tabs 0RF levothyroxine Discontinued Reason: Patient no longer taking 12.5 mcg (1/2 x 25 mcg) PO DAILY@0600 30 days 15 tabs 0RF aripiprazole (Abilify) Discontinued Reason: Patient no longer taking 2 mg PO BEDTIME 14 tabs 0RF Patient Instructions: Why aren't I getting antibiotics? I am so sick. I need them. I am empathetic that you're not feeling well & want you to recover quickly. The reason I have not prescribed antibiotics today is because I am an Antibiotic Yaneth. What does that mean? It means that I am aiding in reducing Antimicrobial resistance (AMR). Antimicrobial resistance (AMR) is one of the top global public health and development threats. It is estimated that bacterial AMR was directly responsible for 1.27 million global deaths in 2019 and contributed to 4.95 million deaths. The misuse and overuse of antimicrobials in humans, animals and plants are the main drivers in the development of drug-resistant pathogens. Taking an antibiotic increases a patient?s chance of becoming colonized or infected with a resistant organism, and taking an antibiotic when not needed can lead to the development of antibiotic resistance. So the why... is because I care! Coding Level of Care Code Est Pt Level 4 (03565) Diagnoses Nasopharyngitis J00
== END 2024-09-26 11:05 | disposition home or self-care (01) ==
PROVIDERS: Visit Provider Nurse Practitioner Family
DX: Z13.9 Encounter for screening, unspecified (principal); J00 Acute nasopharyngitis [common cold]

== ENCOUNTER 2024-09-26 10:36 | Outpatient (REF) | payer OTHER, SELFPAY ==
[2024-09-26 15:29] LABS: Influenza A PCR NEGATIVE (Negative); Influenza B PCR NEGATIVE (Negative); Resp Syncy Virus RNA Qual PCR NEGATIVE (Negative); SARS COV2 PCR INHOUSE NEGATIVE (Negative)
== END 2024-09-26 10:37 | disposition home or self-care (01) ==
LOC: HO.LNP 10:36
PROVIDERS: Visit Provider Nurse Practitioner Family
DX: J00 Acute nasopharyngitis [common cold] (principal); R09.89 Other specified symptoms and signs involving the circulatory and respiratory systems; Z13.9 Encounter for screening, unspecified
CPT/HCPCS: 0241U; 87880; 99212

== ENCOUNTER 2025-08-14 14:16 | Emergency (ER) | payer OTHER, SELFPAY ==
[2025-08-14 14:19] VITALS: BP 115/60; PULSE 80; RESP 18; TEMP 36.6; O2SAT 98; BMI 23.3
--- NOTE | 2025-08-14 14:22 | ED_ITS ---
HPI - General Adult General Chief complaint: Allergic Reaction Stated complaint: Allergic reaction Time Seen by Provider: 08/14/25 18:39 Source: patient Mode of arrival: ambulatory Limitations: no limitations History of Present Illness ED Provider: JAMARCUS Cottrell HPI narrative: 24 year old female presents w/ concerns Related Data Previous Rx's ?Medication ?Instructions ?Recorded diphenhydramine HCl 25 mg capsule 25 mg PO TID PRN all ergic reaction 08/14/25 (Benadryl) #20 caps epinephrine 0.3 mg/0.3 mL 0.3 mg (0.3 mL) IM Q4H PRN 0 08/14/25 injection, auto-injector (EpiPen anaphylaxis #2 ea 2-Jason) famotidine 40 mg tablet (Pepcid) 40 mg PO DAILY #14 ta bs 08/14/25 prednisone 20 mg tablet 40 mg (2 x 20 mg) PO DAILY 5 days 08/14/25 #10 tabs Allergies Allergy/AdvReac Type Severity Reaction Status Date / Time nut - unspecified (NUTS) Allergy Severe SWELLING Verified 08/14/25 14:22 peanut (PEANUT) Allergy Severe FACIAL Verified 08/14/25 14:22 SWELLING, THROAT SWELLING tree nut (TREE NUT) Allergy Severe THROAT Verified 08/14/25 14:22 SWELLING, FACIAL SWELLING carbamazepine (From Tegretol) Allergy Intermediate Itching Verified 08/14/25 14:22 Review of Systems 2 Review of Systems: Yes all other systems are reviewed and are negative PMFSH Past Medical History Attestation statement: The following information was validated with the patient. Source: old records reviewed and nursing notes reviewed Medical History Elevated WBC count High-functioning autism spectrum disorder Depression ADHD Social History Social History Household Members: Family Household Members Other:: 3 Housing: Apartment Do you presently have visiting nurse or other home services: No Patient Tobacco Use Status: Never used Tobacco e-Cigarette/Vaping Use: Never Used Second Hand Smoke Exposure: No Substance Use Type: Caffiene Advance Directives: No Advance Directives Information Provided: Yes Do you have a plan to hurt others: No Plan service: No Sexual orientation: Bisexual Physical Exam ED Exam Exam: Appearance: Alert.? Oriented X3.? No acute distress.? Head: Normocephalic, atraumatic, no step-offs or deformities Eyes: Pupils equal, round and reactive to light.? ENT: Pharynx normal.?Patent airway, no edema to tongue, uvula, hard or soft palate. Speaking in full sentences controlling secretions well. Neck: Normal inspection.? Neck supple.? CVS: Normal heart rate and rhythm.? Pulses normal.? Respiratory: No respiratory distress.? Breath sounds normal.? Abdomen: Soft and nontender.? Skin: Skin warm and dry.? Normal skin color.? Normal skin turgor.? Extremities: No lower extremity edema.? No calf ttp. 5/5 strength to bilateral upper and lower extremities Neuro: Oriented X 3.? No motor deficit.? No sensory deficit. CN 2-12 intact Vital Signs: Vital Signs - 24 hr 08/14/25 14:19 08/14/25 16:56 Temperature 98 F 98 F Pulse Rate 80 62 Respiratory Rate 18 18 Blood Pressure 115/60 116/56 L Pulse Oximetry 98 100 Oxygen Delivery Method Room Air Room Air BMI result Body Mass Index 23.3 Vital signs stable Course Course Course Narrative: This is a Rapid Medical Examination (RME) performed by Makayla Cornejo PA-C in triage. Full HPI, ROS, assessment and treatment plan per primary provider in the Main ED. Hx: 24 yo F here w/ concerns of allergic reaction. admits to eating peanuts on accident - has a known allergy. initially had itchy throat. 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 PE/vitals: airway patent, speaking in full sentences no muffled voice, no obvious rash/hives satting 99% on RA Plan: labs, observation Medical Decision Making Medical Decision Making [facility] Narrative: 1851 24-year-old female presents with concerns that she had an allergic reaction that improved after Benadryl. She still feels like her throat feels ?weird? however now feeling better. She reports a rash resolved. Physical exam benign. Concern for allergic reaction to peanuts likely from cross contamination. No signs of anaphylaxis no signs of acute threat to airway. No signs of necrotic rash Plan- labs ordered from triage Differential Diagnosis Differential Diagnoses: The differential diagnosis associated with the presentation includes (Concern for allergic reaction to peanuts likely from cross contamination. No signs of anaphylaxis no signs of acute threat to airway. No signs of necrotic rash) Admission/Observation Consideration of admission/observation: Escalation of care including admission/observation considered (no indication ) Lab Data MDM Lab Attestation statement: I reviewed the patient's lab results. 08/14/25 14:55 08/14/25 14:55 Labs: Lab Results 08/14/25 Range/Units 14:55 WBC 11.4 H (4.8-10.8) X10*3/uL RBC 4.98 (4.20-5.50) X10*6/uL Hgb 14.7 (12.0-16.0) g/dl Hct 42.5 (37.0-47.0) % MCV 85.3 (80.0-98.0) fL MCH 29.5 (27.0-33.0) pg MCHC 34.6 (31.0-35.0) g/dl RDW 12.7 (11.0-16.0) % Plt Count 426 H (160-400) X10*3/uL MPV 9.4 (9.4-12.3) fL Immature Gran % (Auto) 0.8 H (0.0-0.4) % Neut % (Auto) 70.3 (45-73) % Lymph % (Auto) 18.5 L (20-40) % [place] % (Auto) 8.1 (2-11) % Eos % (Auto) 1.7 (0-4) % Baso % (Auto) 0.6 (0-2) % Lymph # (Auto) 2.1 (1.2-4.9) X10*3/uL [place] # (Auto) 0.9 (0.1-1.2) X10*3/uL Eos # (Auto) 0.2 (0.0-0.4) X10*3/uL Baso # (Auto) 0.1 (0.0-0.2) X10*3/uL Abs Immat Gran (auto) 0.09 H (0.00-0.03) X10*3/uL Absolute Neuts (auto) 8.0 (2.0-8.3) x10*3/uL Absolute Nucleated RBC 0.000 (0.0-0.012) X10*3/uL Nucleated RBC % (auto) 0.0 (0.0-0.2) /100WBC Sodium 142 (135-145) mmol/L Potassium 4.2 (3.3-5.1) mmol/L Chloride 107 (96-108) mmol/L Carbon Dioxide 29 (22-29) mmol/L Anion Gap 10 L (12-20) BUN 12 (9-16) mg/dL Creatinine 0.69 (0.5-1.4) mg/dL Estim Creat Clear Calc 86.2 Estimated GFR > 60 Random Glucose 80 (60-115) mg/dL Calcium 9.5 D (8.4-10.2) mg/dL Magnesium 2.2 (1.6-2.6) mg/dL Total Bilirubin 0.3 (0.0-1.0) mg/dL AST 25 (5-31) U/L ALT 35 H (0-31) U/L Alkaline Phosphatase 82 (39-117) U/L Total Protein 7.4 (6.5-8.0) g/dL Albumin 4.8 (3.5-5.0) g/dL Tests considered The following testing was considered but not selected: Considered keeping patient for longer for observation however, she has been here for greater than 4 hours no signs of respiratory or cardiopulmonary distress. Patient appears well feeling better. No more rash. No swelling or edema to airway. Prescription Management I considered prescription management with: Other (Steroids, Pepcid, Benadryl.) Chronic Conditions Patient?s care impacted by: Other (See HPI) Discharge Plan Discharge Clinical Impression: Allergic reaction Patient Disposition: Home, Self-Care Instructions: General Allergic Reaction (ED), Allergy Testing (ED) Additional Instructions: Take your medications as prescribed. If you were prescribed antibiotics today, it is important that you take your medication to their entirety, do not skip any doses, do not finish them early. Follow-up with your primary care provider this week. Return to the emergency department with new or worsening symptoms. Such as fevers, chills, chest pain, shortness of breath, nausea, vomiting, dizziness, headache, vision changes, lethargy In case of emergency call 911 How to use an EpiPen: ? Place the orange tip against the middle of the outer thigh. ? Swing and push the auto-injector firmly into the thigh until it ?clicks? ? Hold firmly in place for three seconds?count slowly, ?1, 2, 3? An EpiPen has been sent to your pharmacy this should only be used in severe emergency such as inability to breathe trouble speaking, shortness breath or any signs of anaphylaxis as discussed. If he use an EpiPen it is crucial you come in to an emergency department to be evaluated as you can have a rebound effect. Please follow-up with an allergy doctor. Prescriptions: New famotidine [Pepcid] 40 mg tablet 40 mg PO DAILY Qty: 14 0RF prednisone 20 mg tablet 40 mg PO DAILY 5 Days Qty: 10 0RF diphenhydramine HCl [Benadryl] 25 mg capsule 25 mg PO TID PRN (Reason: allergic reaction) Qty: 20 0RF epinephrine [EpiPen 2-Jason] 0.3 mg/0.3 mL auto-injector 0.3 mg IM Q4H PRN (Reason: anaphylaxis) Qty: 2 0RF Referrals: [facility] [Outside] - 1 day Physician,None [Primary Care Provider, Medical] Print Language: Kyrgyz
[2025-08-14 15:01] LABS: MANUAL DIFF FLAG NO
[2025-08-14 15:14] LABS: Hematocrit 42.5 % (37.0-47.0); Hemoglobin 14.7 g/dl (12.0-16.0); Imm Gran Abs Auto 0.09 X10*3/uL (0.00-0.03); Imm Gran Pct Auto 0.8 % (0.0-0.4); Lymphocytes Absolute Auto 2.1 X10*3/uL (1.2-4.9); Mean Corpuscular HGB Conc 34.6 g/dl (31.0-35.0); Mean Corpuscular Hemoglobin 29.5 pg (27.0-33.0); Mean Corpuscular Volume 85.3 fL (80.0-98.0); NRBC Abs Auto 0.000 X10*3/uL (0.0-0.012); NRBC Pct Auto 0.0 /100WBC (0.0-0.2); Platelet Count 426 X10*3/uL (160-400); Red Blood Count 4.98 X10*6/uL (4.20-5.50); White Blood Count 11.4 X10*3/uL (4.8-10.8)
[2025-08-14 15:17] LABS: Alanine Aminotransferase 35 U/L (0-31); Albumin Level 4.8 g/dL (3.5-5.0); Alkaline Phosphatase 82 U/L (39-117); Anion Gap 10 (12-20); Aspartate Amino Transferase 25 U/L (5-31); Blood Urea Nitrogen 12 mg/dL (9-16); Calcium 9.5 mg/dL (8.4-10.2); Carbon Dioxide 29 mmol/L (22-29); Chloride 107 mmol/L (96-108); Creatinine Clr Calc Pharmacy 86.2; Estimated Glomerular Filt Rate > 60; Magnesium 2.2 mg/dL (1.6-2.6); Potassium 4.2 mmol/L (3.3-5.1); Sodium 142 mmol/L (135-145); Total Protein 7.4 g/dL (6.5-8.0)
[2025-08-14 16:56] VITALS: BP 116/56; PULSE 62; RESP 18; TEMP 36.6; O2SAT 100
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
--- OUTSIDE RECORDS SUMMARY | 2025-08-14 18:00 | XMS_ITS | Encounter Summary ---
Author Organization [facility] Address [address] [place] [phone] Phone Care Team Providers Care Environmental Air Specialist Name Role Phone Geneva Marks MD Primary Care Provider [phone] Encounter Details Date Type Department Care Team (Late st Contact Info) Description 04/10/2018 [facility]version [facility]counter [facility] [id number] [place] [address] Charbel Mendoza MD [address] [place] [address] Social History Tobacco Use Types Packs/Day Years Used Date Smoking Tobacco: Never Assessed Comments Unknown Sex and Gender Information Value Date Recorded Sex Assigned at Not on file Legal Sex Female 6:18 PM EDT Gender Identity Not on file Sexual Orientation Lesbian or Hamilton 09/23/2022 12 :00 AM EDT documented as of this encounter Plan of Treatment Not on file documented as of this encounter Visit Diagnoses Not on filedocumented in this encounter Care Teams Environmental Air Specialist Relationship Specialty Start Date End Date Geneva Marks MD [address] [place] [address] PCP - General Pediatrics 05/26/23 12/31/24 documented as of this encounter
[2025-08-14 18:56] VITALS: BP 123/64; PULSE 81; RESP 16; TEMP 37; O2SAT 99
[2025-08-14 19:03] VITALS: BP 123/64; PULSE 81; RESP 16; TEMP 37; O2SAT 99
== END 2025-08-14 19:10 | disposition home or self-care (01) ==
PROVIDERS: Physician Assistant Medical; Emergency Provider Emergency Medicine
DX: L29.89 Other pruritus (principal); T78.1XXA Other adverse food reactions, not elsewhere classified, initial encounter; X58.XXXA Exposure to other specified factors, initial encounter
CPT/HCPCS: 36415; 80053; 83735; 85025; 99282; 99283; J1100